=== PATIENT | female | born 1985 | race Asian ===

== ENCOUNTER 2016-04-04 19:23 | Emergency (ER) | payer OTHER ==
[~2016-04-04] VITALS: Ht 170.2 cm; Wt 56.7 kg
[~2016-04-04 19:23] MED LIST: AMBIEN5 MG PO; CAMILA0.35 MG PO; DIPH25CA90 PO; FENTANYL TOP; FOLI1TAB26 PO; FOLIC ACID5 MG PO; HYDR10TA47 PO; HYDR2TAB12 PO; HYDR4TAB12 PO; HYDROXYUREA500 MG PO; IBUP-97 PO; KETO10TA34 PO; LEXAPRO10 MG PO; LORTAB 10-325 M1 TAB PO; LORTAB 7.5-3251 TAB PO; LORTAB1 TAB PO; MOTRIN IB200 MG PO; OXYC5TAB24 PO; PROM25TA52 PO; TEMA15CA19 PO; TIZA4TAB5 PO; ZOLOFT25 MG PO
[2016-04-04 22:16] LABS: POTASSIUM 3.7 mmol/L (3.6-5.2); SODIUM 141 mmol/L (136-145)
[2016-04-04 22:18] LABS: PLATELET COUNT 374 K/uL (152-353)
[2016-04-04 23:30] VITALS: BP 102/62; TEMP 99.8
== END 2016-04-04 23:36 | disposition home or self-care (01) ==
LOC: ED 19:23
PROVIDERS: Specialist
DX: T80.69XA Other serum reaction due to other serum, initial encounter (principal); D57.80 Other sickle-cell disorders without crisis
CPT/HCPCS: 36415; 80048; 85027; 85044; 96374; 99284; J1642; J1885

== ENCOUNTER 2019-10-27 10:57 | Inpatient (IN) | payer OTHER ==
[~2019-10-27] VITALS: Ht 170.2 cm; Wt 54.0 kg
[2019-10-27 11:05] VITALS: BP 107/64; TEMP 99.1
[2019-10-27 12:14] LABS: POTASSIUM 3.5 mmol/L (3.6-5.2)
[2019-10-27 12:17] LABS: PLATELET COUNT 339 K/uL (152-353)
[2019-10-27 15:35] VITALS: BP 106/60; TEMP 98.3; Ht 170.2 cm; Wt 54.0 kg
[2019-10-27] MEDS ORDERED: KP FOLIC ACID1 MG PO (19:03)
[2019-10-27] MEDS ORDERED: ELIQUIS5 MG PO (19:04)
[2019-10-27] MEDS ORDERED: PROMETHAZINE12.5 M3 PO (19:06)
[2019-10-27] MEDS ORDERED: METOPROLOL25 M1 PO (19:08)
[2019-10-27] MEDS ORDERED: HYDROXYUREA500 MG PO (19:10)
[2019-10-27 20:00] VITALS: BP 103/52; TEMP 98.1
[2019-10-28] VITALS (21 sets, daily range): BP systolic 84–116; BP diastolic 46–72; TEMP 97.9–98.8
[2019-10-29] VITALS: BP 108/59; TEMP 100.8
[2019-10-29 01:21] LABS: PLATELET COUNT 312 K/uL (152-353)
[2019-10-29 01:48] LABS: POTASSIUM 3.9 mmol/L (3.6-5.2)
[2019-10-29 04:04] VITALS: BP 108/60; TEMP 100
[2019-10-29 06:20] LABS: PLATELET COUNT 282 K/uL (152-353)
[2019-10-29 06:42] LABS: POTASSIUM 3.9 mmol/L (3.6-5.2)
[2019-10-29 08:00] VITALS: BP 103/61; TEMP 98.6
[2019-10-29 12:00] VITALS: BP 108/69; TEMP 98.7
[2019-10-29 16:00] VITALS: BP 109/67; TEMP 98.6
[2019-10-29 20:00] VITALS: BP 98/50; TEMP 99.7
[2019-10-30] VITALS: BP 117/73; TEMP 98.9
[2019-10-30 04:00] VITALS: BP 107/64; TEMP 98.9
[2019-10-30 05:36] LABS: PLATELET COUNT 281 K/uL (152-353)
[2019-10-30 05:40] LABS: POTASSIUM 3.9 mmol/L (3.6-5.2)
[2019-10-30 08:00] VITALS: BP 105/69; TEMP 98.6
[2019-10-30 12:00] VITALS: BP 112/57; TEMP 99.2
[2019-10-30 16:00] VITALS: BP 112/70; TEMP 98.6
[2019-10-30 20:00] VITALS: BP 110/69; TEMP 99
[2019-10-31] VITALS: BP 110/51; TEMP 98.6
[2019-10-31 04:05] VITALS: BP 105/68; TEMP 98.9
[2019-10-31 04:34] LABS: PLATELET COUNT 249 K/uL (152-353)
[2019-10-31 04:39] LABS: POTASSIUM 3.9 mmol/L (3.6-5.2)
[2019-10-31 08:00] VITALS: BP 119/71; TEMP 99.2
[2019-10-31 12:00] VITALS: BP 102/61; TEMP 98.7
[2019-10-31 16:00] VITALS: BP 111/65; TEMP 98.3
[2019-10-31 20:15] VITALS: BP 115/66; TEMP 98.5
[2019-11-01] VITALS (7 sets, daily range): BP systolic 92–114; BP diastolic 48–75; TEMP 97.7–99.5
[2019-11-01 05:52] LABS: PLATELET COUNT 297 K/uL (152-353)
[2019-11-01 06:09] LABS: POTASSIUM 3.9 mmol/L (3.6-5.2)
[2019-11-02 04:00] VITALS: BP 97/57; TEMP 98.1
[2019-11-02 06:29] LABS: POTASSIUM 3.6 mmol/L (3.6-5.2)
[2019-11-02 06:43] LABS: PLATELET COUNT 289 K/uL (152-353)
[2019-11-02 08:00] VITALS: BP 102/55; TEMP 98.4
[2019-11-02 12:00] VITALS: BP 100/61; TEMP 98.7
[2019-11-02 16:00] VITALS: BP 102/54; TEMP 98.3
[2019-11-02 20:00] VITALS: BP 98/54; TEMP 98.2
[2019-11-03] VITALS: BP 119/75; TEMP 98.3
[2019-11-03 04:24] VITALS: BP 102/53; TEMP 98.5
[2019-11-03 05:57] LABS: PLATELET COUNT 366 K/uL (152-353)
[2019-11-03 06:30] LABS: POTASSIUM 3.6 mmol/L (3.6-5.2)
[2019-11-03 08:00] VITALS: BP 99/56; TEMP 98.1
[2019-11-03 12:00] VITALS: BP 111/56; TEMP 98
[2019-11-03 16:00] VITALS: BP 104/62; TEMP 98.4
[2019-11-03 20:00] VITALS: BP 125/70; TEMP 101.1
[2019-11-04] VITALS (8 sets, daily range): BP systolic 94–119; BP diastolic 47–70; TEMP 99.2–103.1
[2019-11-04 02:47] LABS: PLATELET COUNT 348 K/uL (152-353)
[2019-11-05 00:03] VITALS: BP 107/61; TEMP 98.7
[2019-11-05 03:03] LABS: PLATELET COUNT 328 K/uL (152-353)
[2019-11-05 04:06] LABS: POTASSIUM 3.7 mmol/L (3.6-5.2)
[2019-11-05 04:52] VITALS: BP 108/70; TEMP 98.9
[2019-11-05 08:00] VITALS: BP 110/66; TEMP 99.1
[2019-11-05 12:00] VITALS: BP 100/61; TEMP 98.6
[2019-11-05 16:00] VITALS: BP 129/76; TEMP 98.4
[2019-11-05 20:00] VITALS: BP 102/68; TEMP 98.2
[2019-11-06] VITALS: BP 124/78; TEMP 98.3
[2019-11-06 04:00] VITALS: BP 151/97; TEMP 98.5
[2019-11-06 07:30] LABS: PLATELET COUNT 297 K/uL (152-353)
[2019-11-06 08:00] VITALS: BP 120/68; TEMP 98.7
[2019-11-06 12:00] VITALS: BP 120/69; TEMP 98.3
[2019-11-06] MEDS ORDERED: CLIN300C PO (13:18)
[2019-11-06] MEDS ORDERED: [UNRECOGNIZED DRUG - OTHER] PO (13:21)
[2019-11-06 16:00] VITALS: BP 122/73; TEMP 98.5
== END 2019-11-06 17:20 | disposition home or self-care (01) | DRG 811 ==
LOC: ED 10:57 → MED/SURG 13:35
PROVIDERS: Internal Medicine; Internal Medicine Endocrinology, Diabetes & Metabolism; ADMIT Emergency Medicine Emergency Medical Services
PROC: 30233N1 Transfusion of Nonautologous Red Blood Cells into Peripheral Vein, Percutaneous Approach (ICD-10-PCS; principal; 2019-10-28)
DX: D57.819 Other sickle-cell disorders with crisis, unspecified (principal); A41.01 Sepsis due to Methicillin susceptible Staphylococcus aureus; Q89.01 Asplenia (congenital); I42.8 Other cardiomyopathies; I48.92 Unspecified atrial flutter; R07.89 Other chest pain; G89.4 Chronic pain syndrome; R79.89 Other specified abnormal findings of blood chemistry; R59.1 Generalized enlarged lymph nodes; R91.8 Other nonspecific abnormal finding of lung field; Z79.1 Long term (current) use of non-steroidal anti-inflammatories (NSAID); Z79.891 Long term (current) use of opiate analgesic; R16.0 Hepatomegaly, not elsewhere classified; Z79.01 Long term (current) use of anticoagulants
CPT/HCPCS: 36415; 36416; 36591; 80048; 80053; 80074; 80202; 81000; 82550; 82553; 84484; 85007; 85027; 85044; 86850; 86870; 86900; 86901; 86902; 86905; 86922; 87040; 87077; 87185; 87186; 87205; 87635; 93005; 94760; 96360; 96375; 99284; J1170; J1200; J1642; J1650; J1885; J1940; J2543; J3370; P9016; Q9963; U0003

== ENCOUNTER 2019-12-04 10:00 | Inpatient (IN) | payer OTHER ==
[~2019-12-04] VITALS: Ht 170.2 cm; Wt 59.1 kg
[~2019-12-04 10:00] MED LIST changes: +CLIN300C PO; +ELIQUIS5 MG PO; +KP FOLIC ACID1 MG PO; +METOPROLOL25 M1 PO; +PROMETHAZINE12.5 M3 PO; +[UNRECOGNIZED DRUG - OTHER] PO
[2019-12-04 10:13] VITALS: BP 104/45; TEMP 98.7
[2019-12-04 10:52] LABS: PLATELET COUNT 287 K/uL (152-353)
[2019-12-04 11:02] LABS: PARTIAL THROMBOPLASTIN TIME 72.3 SECONDS (24.5-33.6)
[2019-12-04 13:21] VITALS: BP 115/70; TEMP 98.5; Ht 170.2 cm; Wt 59.1 kg
[2019-12-04 20:00] VITALS: BP 136/60; TEMP 98
[2019-12-04 23:57] VITALS: BP 124/70; TEMP 98.9
[2019-12-05] VITALS (9 sets, daily range): BP systolic 107–120; BP diastolic 52–69; TEMP 98.4–100.7
[2019-12-05 05:30] LABS: POTASSIUM 4.3 mmol/L (3.6-5.2)
[2019-12-05 05:45] LABS: PLATELET COUNT 230 K/uL (152-353)
[2019-12-06] VITALS (10 sets, daily range): BP systolic 104–122; BP diastolic 56–73; TEMP 99.1–100.3
[2019-12-06] MEDS ORDERED: AMOX500T5 PO (16:26)
[2019-12-06] MEDS ORDERED: CIPRO500 MG PO (16:36)
== END 2019-12-06 18:00 | disposition home or self-care (01) | DRG 812 ==
LOC: ED 10:00 → MED/SURG 11:25
PROVIDERS: Internal Medicine; ADMIT Hospitalist
PROC: 30233N1 Transfusion of Nonautologous Red Blood Cells into Peripheral Vein, Percutaneous Approach (ICD-10-PCS; principal; 2019-12-05)
PROC: 30233N1 Transfusion of Nonautologous Red Blood Cells into Peripheral Vein, Percutaneous Approach (ICD-10-PCS; 2019-12-06)
DX: D57.819 Other sickle-cell disorders with crisis, unspecified (principal); N39.0 Urinary tract infection, site not specified; I48.0 Paroxysmal atrial fibrillation; Z79.01 Long term (current) use of anticoagulants; B96.1 Klebsiella pneumoniae [K. pneumoniae] as the cause of diseases classified elsewhere
CPT/HCPCS: 36415; 36430; 80053; 81000; 81025; 83605; 85007; 85014; 85018; 85027; 85044; 85610; 85730; 86850; 86900; 86901; 86922; 87040; 87077; 87086; 87088; 87186; 94760; 96361; 96365; 96366; 96372; 96374; 96375; 99284; J1170; J1200; J1642; J1650; J1885; J1956; J2405; P9016

== ENCOUNTER 2019-12-29 23:53 | Inpatient (IN) | payer OTHER ==
[~2019-12-29] VITALS: Ht 170.2 cm; Wt 58.1 kg
[~2019-12-29 23:53] MED LIST changes: +AMOX500T5 PO; +CIPRO500 MG PO
[2019-12-29 23:58] VITALS: BP 117/48; TEMP 99.2
[2019-12-30] VITALS (14 sets, daily range): BP systolic 89–120; BP diastolic 48–81; TEMP 97.2–98.7; Ht 170.2 cm; Wt 58.1 kg
[2019-12-30 01:09] LABS: POTASSIUM 3.4 mmol/L (3.6-5.2)
[2019-12-30 01:13] LABS: PLATELET COUNT 359 K/uL (152-353)
[2019-12-31] VITALS (11 sets, daily range): BP systolic 101–128; BP diastolic 63–84; TEMP 97.4–99.1
[2019-12-31 12:55] LABS: PLATELET COUNT 311 K/uL (152-353)
[2019-12-31] MEDS ORDERED: EXJADE500 MG PO (17:50)
[2020-01-01 04:00] VITALS: BP 128/83; TEMP 99
[2020-01-01 08:00] VITALS: BP 112/73; TEMP 99.4
[2020-01-01 12:00] VITALS: BP 117/72; TEMP 99.7
[2020-01-01 16:00] VITALS: BP 118/68; TEMP 99.7
[2020-01-01 20:00] VITALS: BP 135/70; TEMP 99.6
[2020-01-02] VITALS: BP 137/71; TEMP 100
[2020-01-02 04:00] VITALS: BP 129/78; TEMP 99.3
[2020-01-02 08:00] VITALS: BP 118/69; TEMP 99.3
[2020-01-02 12:00] VITALS: BP 136/86; TEMP 99.4
[2020-01-02 13:23] LABS: PLATELET COUNT 269 K/uL (152-353)
[2020-01-02 13:40] LABS: POTASSIUM 3.9 mmol/L (3.6-5.2)
[2020-01-02 16:00] VITALS: BP 138/88; TEMP 99.6
[2020-01-02 20:00] VITALS: BP 122/68; BP 160/67; TEMP 98.4; TEMP 99.8
[2020-01-03] VITALS: BP 128/68; TEMP 100.2
[2020-01-03 04:00] VITALS: BP 125/68; TEMP 100.5
[2020-01-03 08:00] VITALS: BP 114/61; TEMP 98.9
[2020-01-03 12:00] VITALS: BP 118/67; TEMP 98.9
[2020-01-03] MEDS ORDERED: BLOOMIS59 PO (13:59)
== END 2020-01-03 15:30 | disposition home or self-care (01) | DRG 812 ==
LOC: ED 23:53 → MED/SURG 12-30 01:52
PROVIDERS: Emergency Medicine Emergency Medical Services; ADMIT Internal Medicine
PROC: 30233N1 Transfusion of Nonautologous Red Blood Cells into Peripheral Vein, Percutaneous Approach (ICD-10-PCS; principal; 2019-12-30)
PROC: 30233N1 Transfusion of Nonautologous Red Blood Cells into Peripheral Vein, Percutaneous Approach (ICD-10-PCS; 2019-12-31)
DX: D57.818 Other sickle-cell disorders with crisis with other specified complication (principal); I48.92 Unspecified atrial flutter; Z79.01 Long term (current) use of anticoagulants; D72.828 Other elevated white blood cell count
CPT/HCPCS: 36415; 36591; 80053; 81000; 85027; 85044; 86850; 86900; 86901; 86922; 93005; 96360; 96365; 96375; 99284; J1170; J1200; J1642; J2543; P9016

== ENCOUNTER 2020-01-18 13:27 | Emergency (ER) | payer OTHER ==
[~2020-01-18] VITALS: Ht 170.2 cm; Wt 49.9 kg
[~2020-01-18 13:27] MED LIST changes: +BLOOMIS59 PO; +EXJADE500 MG PO
[2020-01-18 13:49] VITALS: TEMP 98.8
[2020-01-18 14:56] VITALS: BP 113/71
== END 2020-01-18 14:56 | disposition home or self-care (01) ==
LOC: ED 13:27
DX: D57.1 Sickle-cell disease without crisis (principal); M25.552 Pain in left hip
CPT/HCPCS: 96372; 99283; J1200; J2175

== ENCOUNTER 2020-01-31 16:54 | Emergency (ER) | payer OTHER ==
[~2020-01-31] VITALS: Ht 170.2 cm; Wt 49.9 kg
[2020-01-31 19:05] VITALS: BP 117/63; TEMP 97.3
== END 2020-01-31 19:05 | disposition home or self-care (01) ==
LOC: ED 16:54
DX: N39.0 Urinary tract infection, site not specified (principal); Z03.818 Encounter for observation for suspected exposure to other biological agents ruled out
CPT/HCPCS: 81000; 87086; 87088; 87502; 87635; 96372; 99282; 99283; J1885; U0003

== ENCOUNTER 2020-02-09 15:52 | Outpatient (CLI) | payer OTHER ==
[2020-02-09 16:06] LABS: PLATELET COUNT 288 K/uL (152-353)
== END 2020-02-09 19:10 | disposition home or self-care (01) ==
LOC: LABW 15:52
PROVIDERS: ATTEND Nurse Practitioner
DX: D57.1 Sickle-cell disease without crisis (principal)
CPT/HCPCS: 36415; 82728; 85027; 85044

== ENCOUNTER 2020-02-11 04:32 | Inpatient (IN) | payer OTHER ==
[~2020-02-11] VITALS: Ht 170.2 cm; Wt 62.6 kg
[2020-02-11] VITALS (11 sets, daily range): BP systolic 90–130; BP diastolic 53–91; TEMP 97.6–99.5; Ht 170.2 cm; Wt 62.6 kg
[2020-02-11 06:11] LABS: PLATELET COUNT 251 K/uL (152-353)
[2020-02-11] MEDS ORDERED: NORCO 10/325***1 TAB PO (16:38)
[2020-02-11 18:50] LABS: PLATELET COUNT 208 K/uL (152-353)
[2020-02-12 04:00] VITALS: BP 118/57; TEMP 98.6
[2020-02-12 05:22] LABS: POTASSIUM 4.6 mmol/L (3.6-5.2)
[2020-02-12 06:14] LABS: PLATELET COUNT 156 K/uL (152-353)
[2020-02-12 08:00] VITALS: BP 110/58; TEMP 98.5
[2020-02-12 12:00] VITALS: BP 120/65; TEMP 98.5
[2020-02-12 16:00] VITALS: BP 106/52; TEMP 98.8
[2020-02-12 19:58] VITALS: BP 105/52; TEMP 99.3
[2020-02-12 23:41] VITALS: BP 148/69; TEMP 101.7
[2020-02-13] VITALS (11 sets, daily range): BP systolic 82–139; BP diastolic 44–69; TEMP 99.3–101.6
[2020-02-13 05:45] LABS: PLATELET COUNT 117 K/uL (152-353)
[2020-02-13 05:56] LABS: POTASSIUM 4.8 mmol/L (3.6-5.2)
[2020-02-14] VITALS: BP 84/50; TEMP 99.8
[2020-02-14 04:00] VITALS: BP 88/47; TEMP 99.4
[2020-02-14 05:37] LABS: PLATELET COUNT 229 K/uL (152-353)
[2020-02-14 05:42] LABS: POTASSIUM 4.3 mmol/L (3.6-5.2)
[2020-02-14 08:00] VITALS: BP 90/41; TEMP 100.1
[2020-02-14 12:00] VITALS: BP 99/46; TEMP 99.6
[2020-02-14 16:00] VITALS: BP 102/49; TEMP 100.1
[2020-02-14 20:00] VITALS: BP 124/72; TEMP 102.2
[2020-02-15] VITALS (12 sets, daily range): BP systolic 91–115; BP diastolic 43–73; TEMP 98.4–100.1
[2020-02-15 08:05] LABS: PLATELET COUNT 252 K/uL (152-353)
[2020-02-15 08:29] LABS: POTASSIUM 3.7 mmol/L (3.6-5.2)
== END 2020-02-15 15:55 | disposition short-term general hospital (02) | DRG 812 ==
LOC: ED 04:32 → MED/SURG 07:30
PROVIDERS: ADMIT Emergency Medicine Emergency Medical Services; ATTEND Internal Medicine
PROC: 30233N1 Transfusion of Nonautologous Red Blood Cells into Peripheral Vein, Percutaneous Approach (ICD-10-PCS; principal; 2020-02-11)
PROC: 30233N1 Transfusion of Nonautologous Red Blood Cells into Peripheral Vein, Percutaneous Approach (ICD-10-PCS; 2020-02-13)
DX: D57.818 Other sickle-cell disorders with crisis with other specified complication (principal); R50.81 Fever presenting with conditions classified elsewhere
CPT/HCPCS: 36415; 80053; 80202; 81000; 81025; 83735; 85007; 85014; 85018; 85027; 85044; 86850; 86900; 86901; 86922; 87040; 87077; 87086; 87088; 87186; 96360; 96361; 96366; 96367; 96374; 96375; 96376; 99284; J1170; J1200; J2405; J2543; J3010; J3370; P9016; Q9963

== ENCOUNTER 2020-03-10 14:10 | Emergency (ER) | payer OTHER ==
[~2020-03-10] VITALS: Ht 170.2 cm; Wt 48.5 kg
[~2020-03-10 14:10] MED LIST changes: +NORCO 10/325***1 TAB PO
[2020-03-10 14:15] VITALS: TEMP 97.8
[2020-03-10 14:55] LABS: SODIUM 140 mmol/L (136-145)
[2020-03-10 14:56] LABS: PLATELET COUNT 378 K/uL (152-353)
[2020-03-10 15:02] LABS: PARTIAL THROMBOPLASTIN TIME 28.5 SECONDS (24.5-33.6)
[2020-03-10 18:42] VITALS: BP 105/60
[2020-06-25] MEDS ORDERED: PROM25TA52 PO (12:53)
[2020-06-25] MEDS ORDERED: GABA300C2 PO (12:53)
[2020-06-25] MEDS ORDERED: DOXYCYCL HYC100 MG PO (12:55)
[2020-06-25] MEDS ORDERED: ALLERGY25 M2 PO (12:56)
[2020-06-25] MEDS ORDERED: AMOX875T8 PO (12:57)
[2020-06-25] MEDS ORDERED: PERCOCET1 TA3 PO (12:58)
== END 2020-03-10 18:44 | disposition home or self-care (01) ==
LOC: ED 14:10
PROVIDERS: Hospitalist
DX: R07.89 Other chest pain (principal); D57.1 Sickle-cell disease without crisis; D63.8 Anemia in other chronic diseases classified elsewhere
CPT/HCPCS: 80053; 81000; 81025; 82550; 83605; 83880; 84484; 85027; 85379; 85610; 85730; 87040; 93005; 96360; 96361; 96365; 96375; 99284; J1642; J1885; J2175; J2543; Q9963

== ENCOUNTER 2020-03-16 02:56 | Emergency (ER) | payer OTHER ==
[~2020-03-16] VITALS: Ht 170.2 cm; Wt 8.2 kg
[2020-03-16 04:23] LABS: PLATELET COUNT 285 K/uL (152-353)
[2020-03-16 04:34] LABS: POTASSIUM 4.3 mmol/L (3.6-5.2)
[2020-03-16 06:10] VITALS: BP 110/72; TEMP 98.3
[2020-06-25] MEDS ORDERED: GABA300C2 PO (12:53)
[2020-06-25] MEDS ORDERED: PROM25TA52 PO (12:53)
[2020-06-25] MEDS ORDERED: DOXYCYCL HYC100 MG PO (12:55)
[2020-06-25] MEDS ORDERED: ALLERGY25 M2 PO (12:56)
[2020-06-25] MEDS ORDERED: AMOX875T8 PO (12:57)
[2020-06-25] MEDS ORDERED: PERCOCET1 TA3 PO (12:58)
== END 2020-03-16 06:10 | disposition home or self-care (01) ==
LOC: ED 02:56
PROVIDERS: Emergency Medicine Emergency Medical Services
DX: D57.1 Sickle-cell disease without crisis (principal); M54.89 Other dorsalgia
CPT/HCPCS: 36415; 80053; 81000; 81025; 83735; 85027; 85044; 87086; 87088; 96360; 96375; 99284; J1170; J1642; J2175; J2405; J2550

== ENCOUNTER 2020-03-16 14:09 | Emergency (ER) | payer OTHER ==
[~2020-03-16] VITALS: Ht 170.2 cm; Wt 53.5 kg
[2020-03-16 14:17] VITALS: TEMP 99.3
[2020-03-16 18:04] VITALS: BP 118/66
[2020-06-25] MEDS ORDERED: PROM25TA52 PO (12:53)
[2020-06-25] MEDS ORDERED: GABA300C2 PO (12:53)
[2020-06-25] MEDS ORDERED: DOXYCYCL HYC100 MG PO (12:55)
[2020-06-25] MEDS ORDERED: ALLERGY25 M2 PO (12:56)
[2020-06-25] MEDS ORDERED: AMOX875T8 PO (12:57)
[2020-06-25] MEDS ORDERED: PERCOCET1 TA3 PO (12:58)
== END 2020-03-16 18:06 | disposition home or self-care (01) ==
LOC: ED 14:09
DX: D57.00 Hb-SS disease with crisis, unspecified (principal); E86.0 Dehydration
CPT/HCPCS: 96360; 96375; 99284; J1642; J2175; J2550

== ENCOUNTER 2020-03-20 01:42 | Inpatient (IN) | payer OTHER ==
[~2020-03-20] VITALS: Ht 170.2 cm; Wt 56.0 kg
[2020-03-20] VITALS (32 sets, daily range): BP systolic 75–111; BP diastolic 39–68; TEMP 97–103.4; Ht 170.2 cm; Wt 56.0 kg
[2020-03-20 02:19] LABS: PLATELET COUNT 313 K/uL (152-353)
[2020-03-20 02:24] LABS: POTASSIUM 4.2 mmol/L (3.6-5.2)
--- NOTE | 2020-03-20 16:10 | NUR ---
VS OBTAINED AND RECORDED.
--- NOTE | 2020-03-20 16:15 | NUR ---
UNIT ONE PRBC VERIFIED BY CASHIER AND WAITER/WAITRESS AND Brigida MYRICK RN. BLOOD SPIKED BY Brigida MYRICK RN. STANDBY OBSERVATION AND VS CHECK PER CASHIER AND WAITER/WAITRESS.
--- NOTE | 2020-03-20 16:30 | NUR ---
15MIN OBSERVATION PERIOD COMPLETED WITH NO S/SX TRANSFUSION REACTION NOTED. CALL LIGHT IN EASY REACH. WILL CONTINUE TO MONITOR.
--- NOTE | 2020-03-20 18:18 | NUR ---
UNIT 1 TRANSFUSION COMPLETET- NO S/SX TRANSFUSION REACTION NOTED.
--- NOTE | 2020-03-20 18:20 | NUR ---
PRBC UNIT #2 VERIFIED BY LEAD MINER AND Brigida MYRICK RN. LUNGS CTA. BLOOD SPIKED BY Brigida MYRICK RN AND STARTED TRANSFUSING.
--- NOTE | 2020-03-20 18:35 | NUR ---
15MIN OBSERVATION TIME COMPLETE WITH NO S/SX TRANSFUSION REACTION NOTED. BLOOD RATE SET TO 200ML/HR AND INFUSING TO PAC IN LCW W/O DIFFICULTY.
--- NOTE | 2020-03-20 22:17 | NUR ---
03/20/200: PT AWAKE, EATING TAIWANESE FRIES AND PLAYING A GAME ON PHONE. NO DISTRESS NOTED.
--- NOTE | 2020-03-21 01:24 | NUR ---
03/21/20 0110: PT HAS REQUESTED TO HAVE BLOOD PRESSURE CHECKED AT 2330, AND 0100. BLOOD PRESSURE AT 0100 135/83. DEMEROL 25 MG GIVEN IV AND PHENERGAN 12.5 MG GIVEN PIGGYBACK.
[2020-03-21 03:54] VITALS: BP 104/58; TEMP 98.8
--- NOTE | 2020-03-21 05:35 | NUR ---
Patient is on a Regular diet plan and was admitted with scikle cell crisis, pneumonia and is 5'7" or 67" and IBW = 135+/-10% (121 to 149 lbs.) and kcal needs x 25 = 1500, x 30 = 1800, x 35 = 2100, x 40 = 2100 kcal/day, protein nees x .8 to 1.5 = 49 to 92 grams per day and fluid needs x 25 to 40 = 1500 ml/cc to 2100 ml/cc per day and is at 116.8 lbs. and is 87% of IBW and BMI at 18.32 and is a 34YOF, has bone pain, hemolytic anemia, anemia, CP, Nausea, VALENCIA, UTI, Anemia, atrial flutter, reviewed whole chart, medications, labs and see cahrt for more information and detials and Hgb, Hct, RBC, all depressed and thos labs elevated are WBC, gl 141, AST< ALT and total bilirubin and see labs for more information and details, has a chronic pain d/o, 103 degrees F fever, receives 2 units of PRBC's and hypotension improved with IV fluids. RD Recommendaitons: 1-Monitor Labs 2-OT to work wiht patient 3-PT to work with patient 4-Please work with for pain management 5-Increase fluids as tolerated 6-Add MVI 7-Add appetite stimulant 8-Add a supplement with meals 9-Monitor B/S and glucose levels, no Dx. of DM noted 10-Increase foods high in Fe 11-Add a supplement when eating <75% of meals
--- NOTE | 2020-03-21 05:39 | NUR ---
03/21/20 0507: PT WOKE UP AND ASKED IF IT WAS TIME FOR HER PAIN MEDICINE. CHECKED PT'S BLOOD PRESSURE 104/58. INFORMED PT THAT BLOOD PRESSURE WAS TOO LOW FOR DEMEROL BUT THAT SHE COULD HAVE A PAIN PILL. PT AGREED
[2020-03-21 06:16] LABS: PLATELET COUNT 286 K/uL (152-353)
[2020-03-21 06:42] LABS: POTASSIUM 4.2 mmol/L (3.6-5.2)
[2020-03-21 08:00] VITALS: BP 124/73; TEMP 99
[2020-03-21 12:00] VITALS: BP 117/72; TEMP 98.4
[2020-03-21 16:00] VITALS: BP 116/74; TEMP 98.3
--- NOTE | 2020-03-21 16:00 | NUR ---
PT REQUESTING PAIN MEDICATION DUE TO PAIN AT A 8 ON A 0-10 PAIN SCALE IN HER BACK, RT HIP, AND BILAT LOWER EXT., NO FURTHER NEEDS AT THIS TIME, WILL REASSESS PAIN, CALL LIGHT WITHIN REACH
[2020-03-21 20:28] VITALS: BP 122/73; TEMP 98.7
--- NOTE | 2020-03-21 20:41 | NUR ---
03/21/202007: PT REQUESTED PAIN MED FOR LEVEL 6 PAIN. BLOOD PRESSURE 122/73. DEMEROL 25 MG AND PHENERGAN 12.5MG GIVEN IV.
[2020-03-22 00:07] VITALS: BP 123/83; TEMP 99
--- NOTE | 2020-03-22 00:23 | NUR ---
03/22/20 0010: PT REQUESTED PAIN MEDICINE FOR LEVEL 6 PAIN GENERALIZED IN STOMACH, LEGS, AND BACK. BLOOD PRESSURE 123/83. DEMEROL 25MG AND PHENERGAN 12.5 MG GIVEN IV.
[2020-03-22 04:00] VITALS: BP 122/80; TEMP 99.3
[2020-03-22 05:57] LABS: PLATELET COUNT 267 K/uL (152-353)
[2020-03-22 06:49] LABS: POTASSIUM 3.9 mmol/L (3.6-5.2)
[2020-03-22 08:00] VITALS: BP 141/82; TEMP 99.2
[2020-03-22 12:00] VITALS: BP 125/78; TEMP 99.6
[2020-03-22 16:00] VITALS: BP 145/94; TEMP 98.8
[2020-03-22 19:40] VITALS: BP 104/62; TEMP 99.3
[2020-03-23] VITALS: BP 112/69; TEMP 98.5
[2020-03-23 04:00] VITALS: BP 113/64; TEMP 98.8
[2020-03-23 05:50] LABS: PLATELET COUNT 235 K/uL (152-353)
[2020-03-23 06:19] LABS: POTASSIUM 4.2 mmol/L (3.6-5.2)
[2020-03-23 08:00] VITALS: BP 112/71; TEMP 99.1
[2020-03-23 12:00] VITALS: BP 122/78; TEMP 98.9
[2020-03-23 16:00] VITALS: BP 114/71; TEMP 98.6
[2020-03-23 20:01] VITALS: BP 117/67; TEMP 99.1
[2020-03-24] VITALS: BP 117/67; TEMP 99.1
[2020-03-24 04:00] VITALS: BP 117/80; TEMP 99.5
[2020-03-24 05:43] LABS: PLATELET COUNT 233 K/uL (152-353)
[2020-03-24 06:06] LABS: POTASSIUM 4.1 mmol/L (3.6-5.2)
[2020-03-24 07:30] VITALS: BP 114/77; TEMP 98.9
[2020-03-24 12:00] VITALS: BP 123/78; TEMP 99.3
--- NOTE | 2020-03-24 14:27 | NUR ---
D/C INSTRUCTIONS GIVEN TO PT. PT VERBALIZED UNDERSTANDING. FOLLOW UP APPOINTMENT WITH OLIVIA LY FOR APRIL 01, 2020 AT 2PM. PAC TO [place] D/C INTACT.
--- NOTE | 2020-04-01 09:44 | NUR ---
received call back from Kala @ [facility] ph [phone] ext [phone], fx [phone], they will review records and schedule a new pt appt and notify us nettie.
[2020-06-25] MEDS ORDERED: PROM25TA52 PO (12:53)
[2020-06-25] MEDS ORDERED: GABA300C2 PO (12:53)
[2020-06-25] MEDS ORDERED: DOXYCYCL HYC100 MG PO (12:55)
[2020-06-25] MEDS ORDERED: ALLERGY25 M2 PO (12:56)
[2020-06-25] MEDS ORDERED: AMOX875T8 PO (12:57)
[2020-06-25] MEDS ORDERED: PERCOCET1 TA3 PO (12:58)
== END 2020-03-24 15:05 | disposition home or self-care (01) | DRG 811 ==
LOC: ED 01:57 → MED/SURG 06:20 → ED 06:20 → MED/SURG 07:23
PROVIDERS: Family Medicine; ADMIT Internal Medicine Endocrinology, Diabetes & Metabolism; ATTEND Internal Medicine Endocrinology, Diabetes & Metabolism
PROC: 30233N1 Transfusion of Nonautologous Red Blood Cells into Peripheral Vein, Percutaneous Approach (ICD-10-PCS; principal; 2020-03-20)
DX: D57.818 Other sickle-cell disorders with crisis with other specified complication (principal); J18.8 Other pneumonia, unspecified organism; G89.4 Chronic pain syndrome; I95.89 Other hypotension; R19.7 Diarrhea, unspecified
CPT/HCPCS: 36415; 80053; 81000; 85007; 85027; 85044; 86850; 86900; 86901; 86922; 87040; 87086; 87088; 87502; 87635; 94640; 94664; 94760; 96361; 96365; 96375; 96376; 99284; J0456; J1170; J1200; J1642; J2175; J2550; J3490; P9016; U0003

== ENCOUNTER 2020-04-14 18:41 | Inpatient (IN) | payer OTHER ==
[~2020-04-14] VITALS: Ht 170.2 cm; Wt 51.0 kg
[2020-04-14] VITALS (10 sets, daily range): BP systolic 86–103; BP diastolic 45–69; TEMP 99.3
[2020-04-14] MEDS ORDERED: [UNRECOGNIZED DRUG - OTHER] PO (19:40)
[2020-04-14 21:03] LABS: PLATELET COUNT 398 K/uL (152-353)
[2020-04-14 21:10] LABS: POTASSIUM 4.3 mmol/L (3.6-5.2); SODIUM 141 mmol/L (136-145)
[2020-04-15] VITALS (16 sets, daily range): BP systolic 103–179; BP diastolic 48–88; TEMP 97.7–98.7; Ht 170.2 cm; Wt 51.0 kg
[2020-04-15] MEDS ORDERED: IBU800 MG PO (00:31)
[2020-04-15 13:20] LABS: POTASSIUM 4.2 mmol/L (3.6-5.2)
[2020-04-15 13:27] LABS: PLATELET COUNT 342 K/uL (152-353)
[2020-04-16] VITALS: BP 131/79; TEMP 98.6
[2020-04-16 04:00] VITALS: BP 124/76; TEMP 98.3
[2020-04-16 08:00] VITALS: BP 99/61; TEMP 98
[2020-06-25] MEDS ORDERED: PROM25TA52 PO (12:53)
[2020-06-25] MEDS ORDERED: GABA300C2 PO (12:53)
[2020-06-25] MEDS ORDERED: DOXYCYCL HYC100 MG PO (12:55)
[2020-06-25] MEDS ORDERED: ALLERGY25 M2 PO (12:56)
[2020-06-25] MEDS ORDERED: AMOX875T8 PO (12:57)
[2020-06-25] MEDS ORDERED: PERCOCET1 TA3 PO (12:58)
== END 2020-04-16 11:15 | disposition home or self-care (01) | DRG 812 ==
LOC: ED 18:41 → MED/SURG 23:16
PROVIDERS: Emergency Medicine; ADMIT Internal Medicine Endocrinology, Diabetes & Metabolism; ATTEND Internal Medicine Endocrinology, Diabetes & Metabolism
PROC: 30233N1 Transfusion of Nonautologous Red Blood Cells into Peripheral Vein, Percutaneous Approach (ICD-10-PCS; principal; 2020-04-15)
DX: D57.818 Other sickle-cell disorders with crisis with other specified complication (principal); N39.0 Urinary tract infection, site not specified; I48.92 Unspecified atrial flutter; R51.9 Headache, unspecified
CPT/HCPCS: 36415; 80048; 80053; 80307; 81000; 84484; 85008; 85027; 85610; 85730; 86850; 86900; 86901; 86922; 87086; 87088; 87635; 93005; 96360; 96375; 99284; J1200; J1885; J2175; J2405; P9016; U0003

== ENCOUNTER 2020-04-30 21:06 | Emergency (ER) | payer OTHER ==
[~2020-04-30] VITALS: Ht 170.2 cm; Wt 47.6 kg
[~2020-04-30 21:06] MED LIST changes: +IBU800 MG PO; +[UNRECOGNIZED DRUG - OTHER] PO
[2020-04-30 22:35] VITALS: BP 102/62; TEMP 98.7
[2020-06-25] MEDS ORDERED: GABA300C2 PO (12:53)
[2020-06-25] MEDS ORDERED: PROM25TA52 PO (12:53)
[2020-06-25] MEDS ORDERED: DOXYCYCL HYC100 MG PO (12:55)
[2020-06-25] MEDS ORDERED: ALLERGY25 M2 PO (12:56)
[2020-06-25] MEDS ORDERED: AMOX875T8 PO (12:57)
[2020-06-25] MEDS ORDERED: PERCOCET1 TA3 PO (12:58)
== END 2020-04-30 22:35 | disposition home or self-care (01) ==
LOC: ED 21:06
DX: N39.0 Urinary tract infection, site not specified (principal); G89.29 Other chronic pain
CPT/HCPCS: 81000; 87077; 87086; 87088; 87186; 99283

== ENCOUNTER 2020-05-06 16:30 | Emergency (ER) | payer OTHER ==
[~2020-05-06] VITALS: Ht 170.2 cm; Wt 47.6 kg
[2020-05-06 16:40] VITALS: TEMP 99.9
[2020-05-06 17:27] LABS: PLATELET COUNT 386 K/uL (152-353)
[2020-05-06 17:35] LABS: POTASSIUM 4.9 mmol/L (3.6-5.2)
[2020-05-06 19:20] VITALS: BP 110/62
[2020-06-25] MEDS ORDERED: GABA300C2 PO (12:53)
[2020-06-25] MEDS ORDERED: PROM25TA52 PO (12:53)
[2020-06-25] MEDS ORDERED: DOXYCYCL HYC100 MG PO (12:55)
[2020-06-25] MEDS ORDERED: ALLERGY25 M2 PO (12:56)
[2020-06-25] MEDS ORDERED: AMOX875T8 PO (12:57)
[2020-06-25] MEDS ORDERED: PERCOCET1 TA3 PO (12:58)
== END 2020-05-06 19:20 | disposition home or self-care (01) ==
LOC: ED 16:30
PROVIDERS: Emergency Medicine
DX: G89.29 Other chronic pain (principal); D57.00 Hb-SS disease with crisis, unspecified; N39.0 Urinary tract infection, site not specified
CPT/HCPCS: 80053; 80307; 81000; 81025; 85027; 87088; 96360; 99284

== ENCOUNTER 2020-05-07 15:26 | Emergency (ER) | payer OTHER ==
[~2020-05-07] VITALS: Ht 170.2 cm; Wt 49.0 kg
[2020-05-07 20:30] VITALS: BP 104/67; TEMP 99
[2020-06-25] MEDS ORDERED: PROM25TA52 PO (12:53)
[2020-06-25] MEDS ORDERED: GABA300C2 PO (12:53)
[2020-06-25] MEDS ORDERED: DOXYCYCL HYC100 MG PO (12:55)
[2020-06-25] MEDS ORDERED: ALLERGY25 M2 PO (12:56)
[2020-06-25] MEDS ORDERED: AMOX875T8 PO (12:57)
[2020-06-25] MEDS ORDERED: PERCOCET1 TA3 PO (12:58)
== END 2020-05-07 20:30 | disposition home or self-care (01) ==
LOC: ED 15:26
DX: K04.7 Periapical abscess without sinus (principal); D57.1 Sickle-cell disease without crisis; Z79.2 Long term (current) use of antibiotics
CPT/HCPCS: 80307; 80362; 80375; 96365; 96372; 96375; 96376; 99284; J1200; J1642; J2175; J2550

== ENCOUNTER 2020-05-13 16:56 | Emergency (ER) | payer OTHER ==
[~2020-05-13] VITALS: Ht 170.2 cm; Wt 49.0 kg
[2020-05-13 17:33] VITALS: TEMP 99
[2020-05-13 18:31] LABS: POTASSIUM 4.1 mmol/L (3.6-5.2)
[2020-05-13 18:40] LABS: PARTIAL THROMBOPLASTIN TIME 30.2 SECONDS (24.5-33.6)
[2020-05-13 18:41] LABS: PLATELET COUNT 351 K/uL (152-353)
[2020-05-13 21:15] VITALS: BP 98/56
[2020-06-25] MEDS ORDERED: GABA300C2 PO (12:53)
[2020-06-25] MEDS ORDERED: PROM25TA52 PO (12:53)
[2020-06-25] MEDS ORDERED: DOXYCYCL HYC100 MG PO (12:55)
[2020-06-25] MEDS ORDERED: ALLERGY25 M2 PO (12:56)
[2020-06-25] MEDS ORDERED: AMOX875T8 PO (12:57)
[2020-06-25] MEDS ORDERED: PERCOCET1 TA3 PO (12:58)
== END 2020-05-13 21:30 | disposition home or self-care (01) ==
LOC: ED 16:56
PROVIDERS: Hospitalist
DX: D57.00 Hb-SS disease with crisis, unspecified (principal); R07.89 Other chest pain; Z79.899 Other long term (current) drug therapy; Z51.81 Encounter for therapeutic drug level monitoring
CPT/HCPCS: 36415; 80053; 80307; 81000; 81025; 85007; 85027; 85044; 85610; 85730; 87088; 93005; 96361; 96365; 96372; 96375; 99284; J1642; J1885; J1956; J2175; J2405; J2543; J2550

== ENCOUNTER 2020-05-17 15:16 | Emergency (ER) | payer OTHER ==
[~2020-05-17] VITALS: Ht 170.2 cm; Wt 49.0 kg
[2020-05-17 18:31] LABS: PLATELET COUNT 346 K/uL (152-353)
[2020-05-17 18:36] LABS: POTASSIUM 3.6 mmol/L (3.6-5.2)
[2020-05-17 18:59] LABS: PARTIAL THROMBOPLASTIN TIME 28.1 SECONDS (24.5-33.6)
[2020-05-17 20:25] VITALS: BP 104/59; TEMP 97.8
[2020-06-25] MEDS ORDERED: GABA300C2 PO (12:53)
[2020-06-25] MEDS ORDERED: PROM25TA52 PO (12:53)
[2020-06-25] MEDS ORDERED: DOXYCYCL HYC100 MG PO (12:55)
[2020-06-25] MEDS ORDERED: ALLERGY25 M2 PO (12:56)
[2020-06-25] MEDS ORDERED: AMOX875T8 PO (12:57)
[2020-06-25] MEDS ORDERED: PERCOCET1 TA3 PO (12:58)
== END 2020-05-17 20:25 | disposition home or self-care (01) ==
LOC: ED 15:16
PROVIDERS: Hospitalist
DX: D57.00 Hb-SS disease with crisis, unspecified (principal); D63.8 Anemia in other chronic diseases classified elsewhere; I49.8 Other specified cardiac arrhythmias; Z79.899 Other long term (current) drug therapy; Z51.81 Encounter for therapeutic drug level monitoring
CPT/HCPCS: 36415; 80053; 80307; 81000; 85027; 85044; 85610; 85730; 87086; 87088; 96360; 96372; 96375; 99284; J1642; J1885; J2405; J2550

== ENCOUNTER 2020-06-21 20:46 | Emergency (ER) | payer OTHER ==
[~2020-06-21] VITALS: Ht 170.2 cm; Wt 51.3 kg
[2020-06-21 21:37] LABS: PLATELET COUNT 301 K/uL (152-353)
[2020-06-21 21:48] LABS: POTASSIUM 3.9 mmol/L (3.6-5.2)
[2020-06-21 23:29] VITALS: BP 110/71; TEMP 98
== END 2020-06-21 23:28 | disposition home or self-care (01) ==
LOC: ED 20:46
PROVIDERS: Hospitalist
DX: D57.00 Hb-SS disease with crisis, unspecified (principal); G89.29 Other chronic pain; Z79.899 Other long term (current) drug therapy
CPT/HCPCS: 36415; 80053; 80307; 81000; 81025; 85027; 85044; 87088; 96360; 96365; 96372; 96375; 99284; J1200; J1642; J1885; J2550; J3490

== ENCOUNTER 2020-07-08 19:52 | Emergency (ER) | payer OTHER ==
[~2020-07-08] VITALS: Ht 170.2 cm; Wt 51.3 kg
[~2020-07-08 19:52] MED LIST changes: +ALLERGY25 M2 PO; +AMOX875T8 PO; +DOXYCYCL HYC100 MG PO; +GABA300C2 PO; +PERCOCET1 TA3 PO
[2020-07-08 20:35] LABS: POTASSIUM 3.7 mmol/L (3.6-5.2)
[2020-07-08 20:48] LABS: PLATELET COUNT 285 K/uL (152-353)
[2020-07-08 20:50] LABS: PARTIAL THROMBOPLASTIN TIME 28.5 SECONDS (24.5-33.6)
[2020-07-08 22:31] VITALS: BP 103/66; TEMP 98.7
== END 2020-07-08 22:31 | disposition home or self-care (01) ==
LOC: ED 19:52
PROVIDERS: Hospitalist
DX: D57.00 Hb-SS disease with crisis, unspecified (principal); M79.605 Pain in left leg; M79.604 Pain in right leg
CPT/HCPCS: 36415; 80053; 80307; 81000; 81025; 85008; 85027; 85044; 85610; 85730; 96360; 96361; 96372; 96374; 96375; 99284; J1642; J1885; J2550; J2930

== ENCOUNTER 2020-07-10 08:13 | Inpatient (IN) | payer OTHER ==
[~2020-07-10] VITALS: Ht 170.2 cm; Wt 56.2 kg
[2020-07-10 08:20] VITALS: BP 111/75; TEMP 98.7
[2020-07-10 09:13] LABS: PLATELET COUNT 276 K/uL (152-353)
[2020-07-10 09:22] LABS: POTASSIUM 3.8 mmol/L (3.6-5.2)
[2020-07-10 15:25] VITALS: BP 122/78; TEMP 98.6; Ht 170.2 cm; Wt 56.2 kg
[2020-07-10 20:08] VITALS: BP 106/65; TEMP 98.3
--- NOTE | 2020-07-10 22:14 | NUR ---
PT REQUESTED PAIN MED FOR LEVEL 8 PAIN IN HIPS AND LEGS. DEMEROL 25 MG, BENADRYL 25MG, AND PHENERGAN 25MG GIVEN IV.
[2020-07-11 00:27] VITALS: BP 102/55; TEMP 98.5
[2020-07-11 03:56] VITALS: BP 107/67; TEMP 99.1
[2020-07-11 06:09] LABS: PLATELET COUNT 292 K/uL (152-353)
[2020-07-11 06:17] LABS: POTASSIUM 4.1 mmol/L (3.6-5.2)
[2020-07-11 08:00] VITALS: BP 118/73; TEMP 99.4
[2020-07-11 12:00] VITALS: BP 125/71; TEMP 98.8
--- NOTE | 2020-07-11 13:13 | NUR ---
New Admission and has disgnosis of Sicle Cell Anemia and is on a Regular diet plan; 5'7" and IBW = 135+/-10% (121 to 149 lbs.) kcal needs x 25 = 1500, x 30 = 1800, x 35 = 2200, x 40 = 2500 kcal/day, protein needs x .8 to 1.5 = 49 to 92 grams per day, fluids x 25 to 40 = 1500 to 2200 ml/cc per day. BMI = 89% of IBW and BMI at 18.79 and is wnl's but at the lower percent. 35YOF with dx. of Sickle Cell Crisis and labs reveal WBC 22.8, Hgb, Hct, RBC and Bun and Creta all depressed and RDW elevated and gl 113 elevated.- all the labs stated are abnormal and other labs are wnl's. Dx. of atrial fib, Chronic bone pain, CP, VALENCIA, Chronic Hemolytic Anemia, Nausea, Sever cickness, Sickle Cell Anemia, Sickle Cell with crisis, pruritic d/o, UTI and is on Pepcid, D51/2nS, Phenegan, Benaryly, Demerol, Zofran and see EMR for all medicaitons and RD reviewed all medications and whole chart. RD Recommendations: 1-Monitor Labs 2-PT to work with the patient 3-OT to work with the patinet 4-Increase foods high in Fe 5-Add a supplement with meals 6-Add MVI 7-Add Appetite stimulant 8-Add Vitamin C 500 mg BID 9-Add ZNSO4 220 mg per day and d/c in 14 days 10-[place] all food prefernces and offer substitutes wiht all meals.
[2020-07-11 16:00] VITALS: BP 125/71; TEMP 98.8
[2020-07-11 20:15] VITALS: BP 110/69; TEMP 98.9
[2020-07-12 00:07] VITALS: BP 105/64; TEMP 98
--- NOTE | 2020-07-12 01:29 | NUR ---
PATIENT REPORTS HIP AND LEG PAIN, PATIENT REPOSITIONED AND GIVEN PRN PAIN MEDICATION.
[2020-07-12 04:22] VITALS: BP 111/70; TEMP 98.3
--- NOTE | 2020-07-12 04:55 | NUR ---
PATIENT REPORTED PAIN IN HER HIPS AND LEGS. PATIENT WAS GIVEN PRN PAIN MEDICATION
[2020-07-12 05:59] LABS: POTASSIUM 3.7 mmol/L (3.6-5.2)
[2020-07-12 06:10] LABS: PLATELET COUNT 291 K/uL (152-353)
--- NOTE | 2020-07-12 07:35 | NUR ---
PT LAYING IN BED ON HER PHONE. IVF INFUSING WITHOUT DIFFICULTY. PT REQUESTS HER PAIN MEDICATION WHEN IT IS TIME FOR IT. NAD NOTED.
[2020-07-12 08:00] VITALS: BP 112/66; TEMP 98.5
--- NOTE | 2020-07-12 08:45 | NUR ---
PT C/O PAIN 09/11, HER SHOULDERS AND BACK. PT'S AM ASSESSMENT COMPLETED AT THIS TIME. DR. ALVAREZ AT PT'S BEDSIDE. NO NEW ORDERS REC'D AT THIS TIME. PT GIVEN PAIN MEDS PER MD ORDERS. IVF INFUSING WITHOUT DIFFICULTY. PT ON HER PHONE.
[2020-07-12 12:00] VITALS: BP 122/77; TEMP 98.6
[2020-07-12 16:00] VITALS: BP 114/72; TEMP 98.3
[2020-07-12 20:00] VITALS: BP 120/78; TEMP 98.6
[2020-07-13 00:12] VITALS: BP 115/78; TEMP 98.4
[2020-07-13 04:00] VITALS: BP 115/71; TEMP 98.1
[2020-07-13 06:08] LABS: PLATELET COUNT 219 K/uL (152-353)
--- NOTE | 2020-07-13 07:45 | NUR ---
PT LAYING IN BED ON HER RIGHT SIDE ON HER PHONE. IVF INFUSING WITHOUT DIFFICUTLY AT THIS TIME. PT DENIES ANY C/O OR NEEDS AT THIS TIME.
[2020-07-13 08:00] VITALS: BP 132/71; TEMP 98.6
[2020-07-13 12:00] VITALS: BP 141/86; TEMP 98.6
[2020-07-13 16:00] VITALS: BP 126/77; TEMP 99
[2020-07-13 20:00] VITALS: BP 109/67; TEMP 98.7
[2020-07-14] VITALS: BP 113/72; TEMP 98.5
[2020-07-14 04:00] VITALS: BP 114/72; TEMP 98.6
[2020-07-14 05:33] LABS: PLATELET COUNT 231 K/uL (152-353)
[2020-07-14 05:45] LABS: POTASSIUM 4.3 mmol/L (3.6-5.2)
[2020-07-14 08:00] VITALS: BP 111/74; TEMP 99
[2020-07-14 12:00] VITALS: BP 117/82; TEMP 98.5
--- NOTE | 2020-07-14 15:44 | NUR ---
DC INSTRUCTIONS EXPLAINED TO PT WHO VERBALIZED UNDERSTANDING. PAC TO LCW D/C PER PROTOCOL. PT FLYNN WELL, SITE COVERED WITH GAUZE AND TAPE.
--- NOTE | 2020-07-14 16:00 | NUR ---
DC INSTRUCTIONS EXPLAINED TO PT WHO VERBALIZED UNDERSTANDING. PT LEFT FLOOR IN NAD WITH FAMILY MEMBER.
== END 2020-07-14 16:00 | disposition home or self-care (01) | DRG 812 ==
LOC: ED 08:13 → MED/SURG 13:05
PROVIDERS: ADMIT Family Medicine; ATTEND Internal Medicine Endocrinology, Diabetes & Metabolism
DX: D57.818 Other sickle-cell disorders with crisis with other specified complication (principal); G89.4 Chronic pain syndrome
CPT/HCPCS: 36415; 80048; 80053; 80307; 81000; 81025; 82150; 83690; 85007; 85027; 85044; 87635; 96360; 96366; 96374; 96375; 96376; 99284; J1200; J1642; J1650; J1885; J2175; J2405; J2550; J3480; U0003

== ENCOUNTER 2020-07-27 21:05 | Emergency (ER) | payer OTHER ==
[~2020-07-27] VITALS: Ht 170.2 cm; Wt 51.3 kg
[2020-07-27 23:05] LABS: PLATELET COUNT 316 K/uL (152-353)
[2020-07-27 23:17] LABS: POTASSIUM 4.7 mmol/L (3.6-5.2)
[2020-07-28 02:09] VITALS: BP 110/68; TEMP 98.5
== END 2020-07-28 02:09 | disposition home or self-care (01) ==
LOC: ED 21:05
PROVIDERS: Family Medicine
DX: D57.00 Hb-SS disease with crisis, unspecified (principal)
CPT/HCPCS: 36415; 80053; 83605; 85027; 85044; 96360; 96375; 96376; 99284; J1200; J2175; J2550

== ENCOUNTER 2020-08-05 14:27 | Emergency (ER) | payer OTHER ==
[~2020-08-05] VITALS: Ht 170.2 cm; Wt 51.3 kg
[2020-08-05 14:36] VITALS: BP 105/57; TEMP 97.9
== END 2020-08-05 16:11 | disposition home or self-care (01) ==
LOC: ED 14:27
DX: M79.18 Myalgia, other site (principal); R11.0 Nausea
CPT/HCPCS: 96372; 99283; J1885; J2405

== ENCOUNTER 2020-08-05 20:30 | Inpatient (IN) | payer OTHER ==
[~2020-08-05] VITALS: Ht 170.2 cm; Wt 52.4 kg
[2020-08-05 20:35] VITALS: BP 118/55; TEMP 99
[2020-08-05 22:22] LABS: POTASSIUM 4.3 mmol/L (3.6-5.2)
[2020-08-05 22:29] LABS: PLATELET COUNT 256 K/uL (152-353)
--- NOTE | 2020-08-05 23:50 | NUR ---
PATIENT ARRIVED ON FLOOR VIA W/C. TAKEN TO ROOM 1111. ORIENTED TO SURROUNDINGS AND CALL LIGHT. NAD NOTED. PATIENT LYING IN BED ON HER CELL PHONE AT THIS TIME.
[2020-08-06] VITALS (15 sets, daily range): BP systolic 101–130; BP diastolic 47–85; TEMP 98.1–99.4; Ht 170.2 cm; Wt 52.4 kg
--- NOTE | 2020-08-06 00:15 | NUR ---
IN TO CHECK ON PATIENT. ASSESSMENT PERFORMED. PATIENT C/O LEFT HIP PAIN MOSTLY. 22G TO LEFT FOREARM INTACT. NO SWELLING OR ERYTHEMA NOTED. ZOSYN RUNNING AFTER BEING STARTED IN ER. ONCE FINISHED, NS WAS STARTED @ 125ML/HR. PATIENT RESPIRATIONS ARE EVEN AND UNLABORED. SHE IS LYING IN BED PLAYING ON HER CELL PHONE. NAD NOTED. DENIES ANY CONCERNS OR COMPLAINTS AT THIS TIME. CALL LIGHT WITHIN REACH.
--- NOTE | 2020-08-06 00:50 | NUR ---
COVID SWAB X2 PERFORMED ON PATIENT. THE FIRST SWAB WAS DROPPED ON THE FLOOR. SECOND SWAB OBTAINED WITH NO COMPLICATIONS. PATIENT TOLERATED WELL.
--- NOTE | 2020-08-06 03:20 | NUR ---
PATIENT REQUESTING SOMETHING FOR PAIN. WHEN TOLD THAT THE ER PHYSICIAN ORDERED DEMEROL 50MG Q6H, SHE BECAME UPSET STATING THAT OVER THE LAST THREE HOSPITALIZATIONS SHE HAS GOTTEN PAIN MEDICATION Q4H. I EXPLAINED THAT THE ER DOCTOR ORDERED IT DIFFERENTLY AND THE HOSPITALIST COULD CHANGE IT IF THEY CHOSE TO DO SO IN THE MORNING. SHE ASKED THAT I CALL THE ER DOCTOR TO REQUEST SCHEDULING SOONER.
--- NOTE | 2020-08-06 03:24 | NUR ---
SPOKE WITH DR. SIN REGARDING PATIENT'S REQUEST FOR MORE FREQUENT DOSES OF DEMEROL. HE AGREED. NEW ORDER GIVEN FOR DEMEROL 50MG IV Q4H PRN PAIN. READ BACK AND VERIFIED. NO FURTHER ORDERS GIVEN.
--- NOTE | 2020-08-06 04:00 | NUR ---
DEMEROL 50MG GIVEN VIA SLOW IVP. NO OTHER CONCERNS VOICED BY PATIENT AT THIS TIME. SHE IS LYING IN BED ON HER CELL PHONE. NAD NOTED. PATIENT BECAME MORE PLEASANT AT THIS TIME. CALL LIGHT WITHIN REACH.
--- NOTE | 2020-08-06 06:00 | NUR ---
IN TO HANG ZOSYN IVPB. PATIENT REQUESTING BENADRYL NOW.
[2020-08-06 06:01] LABS: PLATELET COUNT 222 K/uL (152-353); POTASSIUM 4.4 mmol/L (3.6-5.2)
--- NOTE | 2020-08-06 06:14 | NUR ---
LAB CALLED WITH CRITICAL RESULTS FOR THIS PATIENT. WBC 24.0, HGB 5.2, HCT 14.3
--- NOTE | 2020-08-06 06:15 | NUR ---
CALLED AND SPOKE WITH DR. SIN REGARDING PATIENT'S CRITICAL LABS. ORDERS GIVEN TO TRANSFUSE TWO UNITS OF PRBCS. GIVE BENADRYL 50MG IV AFTER EACH UNIT IS GIVEN. READ BACK AND VERIFIED. NO FURTHER ORDERS GIVEN.
--- NOTE | 2020-08-06 10:27 | NUR ---
08/06/20 0900 SPOKE WITH LAB STATED THAT PT BLOOD FOR TRANSFUSION WILL BE TRANSPORTED IN FROM [facility] NEEDED STAT AND IT WILL BE BROUGHT LATER TODAY. STATED IT WILL BE FINE TO BE BROUGHT IN AM.LAB NOTIFIED.CC
--- NOTE | 2020-08-06 16:11 | NUR ---
08/06/20 1605 FIRST UNIT PRBC'S STARTED WITHOUT DIFFICULTY.LAB NOTIFIED PRIOR TO BLOOD ADMINSTRATION BLOOD BAG AND BLOOD BAND MATCH ON BIRTHDATE OF [birth year].BUT VERIFICATION SHEET STATED 06/04/20 WRITTEN ON PAPER.LAB STATED OKAY TO PROCEED WITH TRANSFUSION.CC 08/07/19 1613 NO PROBLEMS WITH TRANSFUSION TOLERATING WELL.
--- NOTE | 2020-08-06 17:54 | NUR ---
08/06/20 3628 RESTING IN BED BLOOD TRANSFUSION IN PROGRESS.NO LUNCH EATEN FOR TODAY.NO EMESIS NOTED.CC
--- NOTE | 2020-08-06 21:54 | NUR ---
PATIENT AT 2100 ACKED FOR PRN PAIN MEDICATION. 2148 ORDERED BLOOD IS STARTED.
--- NOTE | 2020-08-06 23:33 | NUR ---
PATIENT DENIES ANY PAIN OR DIZZINSS. PATIENT IS RESTING QUIETLY
--- NOTE | 2020-08-07 00:43 | NUR ---
PATIENT BLOOD TRANSFUSION COMPLETE. PATIENT REPORTS NO ADVERSE REACTIONS. PATIENT DENIES ANY PAIN OR SHORTNESS OF BREATH.
--- NOTE | 2020-08-07 04:12 | NUR ---
PATIENT IS RESTING. PATIENT IS ON PHONE SPEAKING WITH FRIENDS
[2020-08-07 04:28] VITALS: BP 96/22; TEMP 98.5
--- NOTE | 2020-08-07 05:12 | NUR ---
PATIENT IS UP IN THE BED PLAYING A GAME ON HER PHONE
[2020-08-07 07:56] LABS: PLATELET COUNT 219 K/uL (152-353)
[2020-08-07 07:58] LABS: POTASSIUM 4.5 mmol/L (3.6-5.2)
[2020-08-07 08:00] VITALS: BP 113/68; TEMP 98.5
[2020-08-07 12:03] VITALS: BP 120/77; TEMP 98.3
[2020-08-07 15:59] VITALS: BP 111/75; TEMP 98.1
[2020-08-07 19:48] VITALS: BP 116/83; TEMP 98.2
--- NOTE | 2020-08-07 22:37 | NUR ---
COMPLAINTS OF SCA PAIN. CHRONIC PAIN. MEDICATED WITH DEMEROL 50 MG IV. PT REQUESTED BENADRYL IV ORDERED ALSO.
[2020-08-08] VITALS (7 sets, daily range): BP systolic 103–121; BP diastolic 55–72; TEMP 98.3–100.7
--- NOTE | 2020-08-08 00:59 | NUR ---
PT IS AWAKE. USING HER CELL PHONE TO WATCH VIDEOS. O2 AT 2L PLACED ON. O2 SATS 90-92 PERCENT. NO COMPLAINTS VOICED AT THIS TIME.
--- NOTE | 2020-08-08 02:09 | NUR ---
COMPLAINS OF NAUSEA AND SICKLE CELL PAIN. MEDICATED WITH DEMEROL 50 MG IVSP AND PHENERGAN IVPB ORDERED.
[2020-08-08 07:27] LABS: POTASSIUM 4.4 mmol/L (3.6-5.2)
[2020-08-08 07:30] LABS: PLATELET COUNT 213 K/uL (152-353)
--- NOTE | 2020-08-08 10:30 | NUR ---
PATIENT REQUESTED PAIN MEDICATION AT THIS TIME. PATIENT RESTING IN BED PLAYING A GAME ON CELLPHONE. NAD NOTED. PATIENT STATED THAT PAIN WAS 8 OUT OF 10 IN HIPS AND LEGS. PRN DEMEROL GIVEN PER MD ORDERS. NS INFUSING AT 100 ML/ HR TO PORT AT THIS TIME. PATIENT FREE OF NEEDS AT THIS TIME.
--- NOTE | 2020-08-08 12:48 | NUR ---
NOTIFIED OF CXR RESULTS NEW ORDER FOR DOXYCYCLINE GIVEN. DRUG INTERACTION VERIFIED WITH . APPROVED ABT
--- NOTE | 2020-08-08 13:00 | NUR ---
VERBAL ORDER RECEIVED FROM DR. ALVAREZ TO DECREASE FLUIDS TO 50 ML/HR.
--- NOTE | 2020-08-08 15:35 | NUR ---
PATIENT HAS BEEN ENCOURAGED THROUGHOUT THE DAY TO TAKE A SHOWER AND CHANGE LINENS. PATIENT STATED THAT SHE WANTED TO WAIT UNTIL MARTINA ARRIVES FOR HIM TO HELP HER SHOWER. SHE SPILLED RED DRINK IN THE BED. PROVIDER RELATIONS REP ASKED IF SHE WOULD LIKE HER LINENS CHANGED AND SHE REFUSED.
--- NOTE | 2020-08-08 15:48 | NUR ---
ENCOURAGED PT TO TAKE A SHOWER AND ALLOW STAFF TO CHANGE HER SHEETS 5 TIMES THIS PT DECLINES EACH TIME THE 5TH TIME PT WAS ENCOURAGED TO GET A SHOWER SHE STATED [facility] SO HE COULD ASSIST HER. STAFF OBSERVED PT IN BATHROOM URINATING PRIOR TO HER CXR. SHE WAS OBSERVED AGAIN URINATING BEFORE LUNCH. PT TOLD MYCOLOGY TEACHER THAT SHE HAS NOT VOIDED AT ALL TODAY.
--- NOTE | 2020-08-08 21:08 | NUR ---
PT SAT ON SIDE OF THE BED AND BATHED HERSELF. LINENS WERE CHANGED. INSTRUCTED PT TO AMBULATE IN ROOM MORE OFTEN. PT VOICED UNDERSTANDING.
--- NOTE | 2020-08-08 22:17 | NUR ---
COMPLAINTS OF SICKLE CELL PAIN/BONES/ACHES. MEDICATED WITH DEMEROL 50 MG IVSP, BENADRYL IVSP ORDERED.
--- NOTE | 2020-08-08 23:25 | NUR ---
MEDICATION EFFECTIVE. PT RESTING WITH EYES CLOSED. NAD NOTED.
--- NOTE | 2020-08-09 00:15 | NUR ---
PATIENT CALLED REQUESTING DEMEROL, PHENERGAN AND BENADRYL. INFORMED PATIENT THAT IT WOULD BE A FEW MORE MINUTES. SHE VERBALIZED UNDERSTANDING.
--- NOTE | 2020-08-09 02:46 | NUR ---
COMPLAINTS OF PAIN. MEDICATED WITH DEMEROL 50 MG SIVP.
[2020-08-09 04:17] VITALS: BP 101/55; TEMP 99.9
[2020-08-09 05:39] LABS: PLATELET COUNT 223 K/uL (152-353)
[2020-08-09 05:51] LABS: POTASSIUM 3.9 mmol/L (3.6-5.2)
--- NOTE | 2020-08-09 07:15 | NUR ---
PT NOTED TO BE LAYING IN BED ON LEFT SIDE RESTING QUIETLY WITH EYES CLOSED. IVF INFUSING WITHOUT DIFFICULTY. NAD NOTED.
[2020-08-09 08:00] VITALS: BP 130/76; TEMP 99.3
[2020-08-09 12:00] VITALS: BP 123/72; TEMP 98.7
[2020-08-09 16:00] VITALS: BP 110/59; TEMP 99.1
[2020-08-09 20:00] VITALS: BP 112/62; TEMP 100
--- NOTE | 2020-08-09 20:05 | NUR ---
ENTERED PATIENT'S ROOM. PATIENT RESTING QUIETLY IN BED. ON CELL PHONE. NAD NOTED. RESPIRATIONS EVEN AND UNLABORED. PHENERGAN COMPLETE. PORT TO LEFT CHEST SALINE LOCKED WITH NO COMPLICATIONS. CALL LIGHT WITHIN REACH.
[2020-08-10] VITALS: BP 120/67; TEMP 98.9
--- NOTE | 2020-08-10 01:15 | NUR ---
PHENERGAN FINISHED. PATIENT LYING IN BED ON CELL PHONE. NAD NOTED. NC INTACT @ 2L/MIN. PORT TO LEFT CHEST SALINE LOCKED AT THIS TIME. CALL LIGHT WITHIN REACH.
[2020-08-10 04:00] VITALS: BP 108/62; TEMP 98.7
--- NOTE | 2020-08-10 04:40 | NUR ---
PATIENT CALLED REQUESTING PAIN MEDICATION. DEMEROL 50MG GIVEN VIA SLOW IVP. RESTING QUIETLY IN BED WITH EYES CLOSED. RESPIRATIONS EVEN AND UNLABORED. NAD NOTED. CALL LIGHT WITHIN REACH.
[2020-08-10 07:00] LABS: PLATELET COUNT 221 K/uL (152-353)
[2020-08-10 08:00] VITALS: BP 99/58; TEMP 99.2
--- NOTE | 2020-08-10 08:15 | NUR ---
LAB CALLED AND REPORTED HGB OF 6.2. DR ALVAREZ INFOMRED. NO NEW ORDERS REC'D AT THIS TIME.
[2020-08-10 08:22] LABS: POTASSIUM 3.8 mmol/L (3.6-5.2)
[2020-08-10 12:00] VITALS: BP 116/70; TEMP 99.3
[2020-08-10 16:00] VITALS: BP 112/67; TEMP 98.9
--- NOTE | 2020-08-10 19:40 | NUR ---
ENTERED PATIENT'S ROOM. PATIENT LYING IN BED ON CELL PHONE. RESPIRATIONS UNLABORED. NAD NOTED. NON-COMPLIANT WITH NASAL CANNULA. PORT TO LEFT CHEST PATENT. FLUSHED WITH 10CC OF NS WITH NO COMPLICATIONS. DENIES ANY CONCERNS OR COMPLAINTS. BED LOCKED AND IN LOWEST POSITION. CALL LIGHT WITHIN REACH.
[2020-08-10 20:00] VITALS: BP 113/69; TEMP 98.9
--- NOTE | 2020-08-10 23:10 | NUR ---
PATIENT CALLED REQUESTING PAIN MEDICATION. DEMEROL 50MG GIVEN VIA IVP BY CHARGE NURSE. CALL LIGHT WITHIN REACH.
[2020-08-11] VITALS (7 sets, daily range): BP systolic 104–116; BP diastolic 59–72; TEMP 98.4–99.3
--- NOTE | 2020-08-11 03:20 | NUR ---
PATIENT CALLED REQUESTING DEMEROL, PHENERGAN AND BENADRYL. BENADRYL 50MG AND DEMEROL 50MG GIVEN VIA SLOW IVP. PHENERGAN GIVEN VIA IVPB @ 200ML/HR. NO OTHER CONCERNS OR COMPLAINTS VOICED. CALL LIGHT WITHIN REACH. 0350- PHENERGAN INFUSION COMPLETE. PORT TO LEFT CHEST FLUSHED WITH 10CC OF NS WITH NO COMPLICATIONS. CURO CAP APPLIED.
--- NOTE | 2020-08-11 05:50 | NUR ---
PATIENT RESTING QUIETLY IN BED WITH EYES CLOSED. RESPIRATIONS EVEN AND UNLABORED. NAD NOTED. SR UP X 2. CALL LIGHT WITHIN REACH.
[2020-08-11 07:03] LABS: PLATELET COUNT 244 K/uL (152-353)
[2020-08-11 07:08] LABS: POTASSIUM 3.6 mmol/L (3.6-5.2)
--- NOTE | 2020-08-11 09:06 | NUR ---
PT CONDITION AND CHART REVIEWED WITH NO NEW ORDERS GIVEN AT THIS TIME
--- NOTE | 2020-08-11 18:02 | NUR ---
PT RESTING QUIETLY IN NAD ON CELL PHONE. CALL LIGHT IN EASY REACH. WILL CONTINUE TO MONITOR.
[2020-08-12 04:00] VITALS: BP 110/57; TEMP 98.6
[2020-08-12 05:24] LABS: PLATELET COUNT 258 K/uL (152-353)
[2020-08-12 05:32] LABS: POTASSIUM 3.6 mmol/L (3.6-5.2)
--- NOTE | 2020-08-12 06:00 | NUR ---
PT HAD UNEVENTFUL NIGHT. REQUESTED PAIN MED Q 4HRS FOR LEVEL 7 PAIN IN LEFT HIP. NO DISTRESS NOTED.
--- NOTE | 2020-08-12 07:53 | NUR ---
ON ROUNDING THIS MORNING PATIENT WAS RESTING WITH EYES CLOSED BUT EASILY AWAKENS WHEN CALLING HER NAME. SHIFT ASSESSMENT COMPLETED. PATIENT CURRENT DENIES ANY N/V//D. HOWEVER PATIENT REPORTS PAIN TO HER LEFT HIP. PAIN IS INTERMITTENT AND DESCRIBES PAIN THROBBING WITH PAIN RATE 6 ON PAIN SCALE 0-10, STATES PAIN MEDICATION HELPS EASE THE PAIN BUT IT DOES NOT GO AWAY COMPLETELY;CHRONIC PAIN. PATIENT REPORTS LAST BOWEL MOVEMENT 08/10/20. IV TO THE LEFT CHEST PORT WALL IS PATENT AND INTACT WITH NO S/S OF INFILTRATION NOTED. BED IS LOCKED IN LOW POSITION, SIDE RAILS UP X2, CALL YO WITHIN REACH.
[2020-08-12 08:00] VITALS: BP 107/64; TEMP 98.6
[2020-08-12 12:00] VITALS: BP 115/60; TEMP 99
--- NOTE | 2020-08-12 12:34 | NUR ---
ONE TIME ORDER OF DEMEROL 50 MG GIVEN X1 DOSE IV PUSH AND BENADRYL 50 MG IV PUSH PER AND THEN AFTER ALLOTED TIME PATIENT CAN BE DISCHARGED HOME.
--- NOTE | 2020-08-12 14:12 | NUR ---
PATIENT GIVEN DISCHARGE INSTRUCTIONS WITH VERBAL UNDERSTANDING NOTED.
== END 2020-08-12 15:15 | disposition home or self-care (01) | DRG 811 ==
LOC: ED 20:30 → MED/SURG 22:45
PROVIDERS: Internal Medicine; ADMIT Family Medicine; ATTEND Internal Medicine Endocrinology, Diabetes & Metabolism
PROC: 30233N1 Transfusion of Nonautologous Red Blood Cells into Peripheral Vein, Percutaneous Approach (ICD-10-PCS; principal; 2020-08-06)
DX: D57.818 Other sickle-cell disorders with crisis with other specified complication (principal); J16.8 Pneumonia due to other specified infectious organisms; G89.4 Chronic pain syndrome
CPT/HCPCS: 36415; 80048; 80053; 80307; 81000; 85007; 85027; 86850; 86900; 86901; 86922; 87040; 87635; 94760; 96365; 96375; 99284; J1200; J1642; J1940; J2175; J2405; J2543; J2550; P9016; U0003

== ENCOUNTER 2020-09-01 13:20 | Emergency (ER) | payer OTHER ==
[2020-09-08 14:54] LABS: PLATELET COUNT 194 K/uL (152-353)
== END 2020-09-01 18:50 | disposition home or self-care (01) ==
LOC: ED 13:20
PROVIDERS: Family Medicine
DX: D57.80 Other sickle-cell disorders without crisis (principal); R07.89 Other chest pain
CPT/HCPCS: 36415; 80053; 82150; 83690; 85007; 85027; 93005; 96374; 96375; 99284; J1200; J2175; J2405

== ENCOUNTER 2020-10-01 10:00 | Emergency (ER) | payer OTHER ==
[~2020-10-01] VITALS: Ht 170.2 cm; Wt 49.0 kg
[2020-10-01 10:10] VITALS: TEMP 97
[2020-10-01 11:29] LABS: PLATELET COUNT 285 K/uL (152-353)
[2020-10-01 11:32] LABS: POTASSIUM 4.5 mmol/L (3.6-5.2)
[2020-10-01 14:57] VITALS: BP 104/64
== END 2020-10-01 14:58 | disposition home or self-care (01) ==
LOC: ED 10:00
PROVIDERS: Family Medicine
DX: D57.00 Hb-SS disease with crisis, unspecified (principal)
CPT/HCPCS: 80053; 81000; 81025; 85027; 85044; 96360; 96375; 96376; 99284; J1200; J1642; J2175; J2550

== ENCOUNTER 2020-10-07 01:21 | Emergency (ER) | payer OTHER ==
[~2020-10-07] VITALS: Ht 170.2 cm; Wt 51.3 kg
[2020-10-07 03:26] LABS: PLATELET COUNT 287 K/uL (152-353); POTASSIUM 3.6 mmol/L (3.6-5.2)
[2020-10-07 04:36] VITALS: BP 120/72; TEMP 98
== END 2020-10-07 04:36 | disposition home or self-care (01) ==
LOC: ED 01:21
PROVIDERS: Family Medicine
DX: D57.1 Sickle-cell disease without crisis (principal)
CPT/HCPCS: 36415; 80053; 80307; 85007; 85027; 96372; 99283; J2175; J2550

== ENCOUNTER 2020-10-09 13:40 | Emergency (ER) | payer OTHER ==
[~2020-10-09] VITALS: Ht 170.2 cm; Wt 51.3 kg
[2020-10-09 14:45] LABS: PLATELET COUNT 338 K/uL (152-353)
[2020-10-09 14:53] LABS: POTASSIUM 3.7 mmol/L (3.6-5.2)
[2020-10-09 15:47] VITALS: BP 103/66; TEMP 98.6
== END 2020-10-09 15:47 | disposition home or self-care (01) ==
LOC: ED 13:40
PROVIDERS: Emergency Medicine
DX: D57.1 Sickle-cell disease without crisis (principal)
CPT/HCPCS: 80048; 80307; 85027; 96372; 99283; J1200; J2175; J2550

== ENCOUNTER 2020-10-13 00:59 | Emergency (ER) | payer OTHER ==
[~2020-10-13] VITALS: Ht 170.2 cm; Wt 51.3 kg
[2020-10-13 02:10] LABS: PLATELET COUNT 330 K/uL (152-353)
[2020-10-13 02:57] LABS: SODIUM 138 mmol/L (136-145)
[2020-10-13 04:55] VITALS: BP 104/70; TEMP 98.7
== END 2020-10-13 04:55 | disposition home or self-care (01) ==
LOC: ED 00:59
PROVIDERS: Hospitalist
DX: R07.89 Other chest pain (principal); R00.2 Palpitations; D64.89 Other specified anemias
CPT/HCPCS: 36415; 80053; 80307; 81000; 81025; 82550; 83880; 84484; 85027; 93005; 96374; 96375; 99284; J1200; J1885; J2405

== ENCOUNTER 2020-10-19 13:22 | Emergency (ER) | payer OTHER ==
[~2020-10-19] VITALS: Ht 170.2 cm; Wt 50.8 kg
[2020-10-19 14:30] LABS: PLATELET COUNT 163 K/uL (152-353)
[2020-10-19 16:29] VITALS: BP 108/59; TEMP 98.9
== END 2020-10-19 16:29 | disposition home or self-care (01) ==
LOC: ED 13:22
PROVIDERS: Hospitalist
DX: D57.00 Hb-SS disease with crisis, unspecified (principal)
CPT/HCPCS: 36415; 80053; 81025; 85007; 85027; 85044; 96360; 96361; 99282; 99284; J1642

== ENCOUNTER 2020-10-30 17:17 | Emergency (ER) | payer OTHER ==
[~2020-10-30] VITALS: Ht 170.2 cm; Wt 50.8 kg
[2020-10-30 17:45] VITALS: TEMP 99.8
[2020-10-30 21:16] LABS: PLATELET COUNT 374 K/uL (152-353)
[2020-10-30 21:23] LABS: POTASSIUM 4.5 mmol/L (3.6-5.2)
[2020-10-31 00:08] VITALS: BP 99/56
== END 2020-10-31 00:08 | disposition home or self-care (01) ==
LOC: ED 17:17
PROVIDERS: Family Medicine
DX: D57.00 Hb-SS disease with crisis, unspecified (principal); I51.7 Cardiomegaly
CPT/HCPCS: 36415; 80053; 81000; 81025; 85027; 85044; 93005; 96360; 96374; 96375; 99284; J1200; J1642; J1885; J2175

== ENCOUNTER 2020-11-01 19:47 | Emergency (ER) | payer OTHER ==
[~2020-11-01] VITALS: Ht 170.2 cm; Wt 50.8 kg
[2020-11-01 21:59] LABS: PLATELET COUNT 371 K/uL (152-353)
[2020-11-01 22:07] LABS: POTASSIUM 4.4 mmol/L (3.6-5.2); SODIUM 142 mmol/L (136-145)
[2020-11-02 00:15] VITALS: BP 110/72; TEMP 98.1
== END 2020-11-02 00:15 | disposition home or self-care (01) ==
LOC: ED 19:47
PROVIDERS: Emergency Medicine Emergency Medical Services
DX: D57.00 Hb-SS disease with crisis, unspecified (principal)
CPT/HCPCS: 36415; 80053; 83735; 84484; 85027; 85044; 93005; 96360; 96361; 96375; 99284; J1170; J1200; J1642

== ENCOUNTER 2020-11-21 23:30 | Emergency (ER) | payer OTHER ==
[~2020-11-21] VITALS: Ht 170.2 cm; Wt 50.8 kg
[2020-11-22 00:47] LABS: PLATELET COUNT 362 K/uL (152-353)
[2020-11-22 01:06] LABS: POTASSIUM 4.5 mmol/L (3.6-5.2)
[2020-11-22 01:50] VITALS: BP 100/55; TEMP 100.7
== END 2020-11-22 01:50 | disposition home or self-care (01) ==
LOC: ED 23:30
PROVIDERS: Hospitalist
DX: J06.9 Acute upper respiratory infection, unspecified (principal); R50.9 Fever, unspecified; D57.1 Sickle-cell disease without crisis; D63.8 Anemia in other chronic diseases classified elsewhere; Z20.822 Contact with and (suspected) exposure to COVID-19
CPT/HCPCS: 80053; 85008; 85027; 85044; 87635; 96372; 99283; J1100; J1885; U0003

== ENCOUNTER 2020-11-28 20:56 | Emergency (ER) | payer OTHER ==
[~2020-11-28] VITALS: Ht 170.2 cm; Wt 51.3 kg
[2020-11-28 21:51] LABS: PLATELET COUNT 321 K/uL (152-353)
[2020-11-28 22:21] LABS: POTASSIUM 3.9 mmol/L (3.6-5.2); SODIUM 138 mmol/L (136-145)
[2020-11-28 23:32] VITALS: BP 95/64; TEMP 99.1
== END 2020-11-28 23:32 | disposition home or self-care (01) ==
LOC: ED 20:56
PROVIDERS: Hospitalist
DX: U07.1 COVID-19 (principal); J06.9 Acute upper respiratory infection, unspecified; R11.2 Nausea with vomiting, unspecified; R19.7 Diarrhea, unspecified; D57.1 Sickle-cell disease without crisis; D63.8 Anemia in other chronic diseases classified elsewhere; Z79.899 Other long term (current) drug therapy; Z51.81 Encounter for therapeutic drug level monitoring
CPT/HCPCS: 36415; 80053; 80307; 81000; 81025; 82550; 83880; 84484; 85027; 85610; 85730; 93005; 96360; 96375; 99284; J1100; J1642; J1885; J2405

== ENCOUNTER 2020-12-16 11:31 | Inpatient (IN) | payer OTHER ==
[~2020-12-16] VITALS: Ht 170.2 cm; Wt 57.6 kg
[2020-12-16 11:37] VITALS: BP 98/49; TEMP 97.9
[2020-12-16 12:00] VITALS: BP 115/73
[2020-12-16 12:24] LABS: PLATELET COUNT 271 K/uL (152-353)
[2020-12-16 12:29] LABS: POTASSIUM 4.3 mmol/L (3.6-5.2)
[2020-12-16 16:17] VITALS: BP 157/52; TEMP 98.8; Ht 170.2 cm; Wt 57.6 kg
[2020-12-16] MEDS ORDERED: ELIQUIS5 MG PO (17:49)
[2020-12-16] MEDS ORDERED: ONDA4TAB3 PO (17:50)
[2020-12-16 20:00] VITALS: BP 110/58; TEMP 98.9
[2020-12-17] VITALS (10 sets, daily range): BP systolic 102–131; BP diastolic 58–81; TEMP 98.5–100.5
[2020-12-17 05:38] LABS: PLATELET COUNT 213 K/uL (152-353)
[2020-12-17 05:50] LABS: POTASSIUM 4.2 mmol/L (3.6-5.2)
[2020-12-18] VITALS (14 sets, daily range): BP systolic 102–144; BP diastolic 56–96; TEMP 98.3–99.6
[2020-12-18 09:25] LABS: PLATELET COUNT 259 K/uL (152-353)
[2020-12-18 09:26] LABS: POTASSIUM 4.4 mmol/L (3.6-5.2)
[2020-12-19 00:08] VITALS: BP 125/76; TEMP 100.5; TEMP 99.5
[2020-12-19 04:03] VITALS: BP 100/57; TEMP 98.9
[2020-12-19 05:06] LABS: PLATELET COUNT 194 K/uL (152-353)
[2020-12-19 05:08] LABS: POTASSIUM 4.7 mmol/L (3.6-5.2)
[2020-12-19 08:09] VITALS: BP 113/66; TEMP 98.9
[2020-12-19 12:29] VITALS: BP 107/53; TEMP 99.4
[2020-12-19 16:26] VITALS: BP 128/74; TEMP 99.8
[2020-12-19 20:00] VITALS: BP 112/66; TEMP 100.2
[2020-12-20] VITALS (7 sets, daily range): BP systolic 95–114; BP diastolic 55–72; TEMP 98.9–100.1
[2020-12-20 04:58] LABS: PLATELET COUNT 246 K/uL (152-353)
[2020-12-21 04:24] VITALS: BP 100/65; TEMP 98.9
[2020-12-21 05:44] LABS: PLATELET COUNT 273 K/uL (152-353)
[2020-12-21 05:53] LABS: POTASSIUM 3.7 mmol/L (3.6-5.2)
[2020-12-21 08:00] VITALS: BP 100/61; TEMP 99.8
[2020-12-21 12:00] VITALS: BP 102/56; TEMP 98.5
[2020-12-21 16:00] VITALS: BP 111/74; TEMP 98.5
[2020-12-21 20:20] VITALS: BP 111/70; TEMP 99.5
[2020-12-22] VITALS (7 sets, daily range): BP systolic 89–109; BP diastolic 50–72; TEMP 98.2–99.4
[2020-12-22 05:38] LABS: PLATELET COUNT 299 K/uL (152-353)
[2020-12-22 05:42] LABS: POTASSIUM 3.5 mmol/L (3.6-5.2)
[2020-12-23 04:00] VITALS: BP 100/51; TEMP 98.5
[2020-12-23 05:19] LABS: POTASSIUM 3.7 mmol/L (3.6-5.2)
[2020-12-23 05:27] LABS: PLATELET COUNT 264 K/uL (152-353)
[2020-12-23 08:00] VITALS: BP 110/72; TEMP 98.9
[2020-12-23 12:00] VITALS: BP 99/52; TEMP 101.3
[2020-12-23 16:00] VITALS: BP 93/49; TEMP 98.8
[2020-12-23 20:00] VITALS: BP 102/59; TEMP 99.9
[2020-12-24] VITALS (7 sets, daily range): BP systolic 94–110; BP diastolic 53–70; TEMP 98–99.5
[2020-12-24 04:37] LABS: POTASSIUM 3.1 mmol/L (3.6-5.2)
[2020-12-24 04:46] LABS: PLATELET COUNT 342 K/uL (152-353)
[2020-12-25 04:14] VITALS: BP 106/65; TEMP 98.3
[2020-12-25 04:58] LABS: PLATELET COUNT 342 K/uL (152-353)
[2020-12-25 05:08] LABS: POTASSIUM 3.5 mmol/L (3.6-5.2)
[2020-12-25 08:00] VITALS: BP 100/61; TEMP 98.9
[2020-12-25 12:00] VITALS: BP 97/54; TEMP 99.6
[2020-12-25 16:00] VITALS: BP 107/63; TEMP 99.3
[2020-12-25 20:00] VITALS: BP 108/69; TEMP 99
[2020-12-26] VITALS: BP 103/65; TEMP 98.6
[2020-12-26 04:17] VITALS: BP 98/68; TEMP 98.7
[2020-12-26 08:00] VITALS: BP 92/50; TEMP 98.7
[2020-12-26 12:00] VITALS: BP 94/59; TEMP 98.7
[2020-12-26 16:00] VITALS: BP 110/76; TEMP 98.8
[2020-12-26 20:00] VITALS: BP 116/73; TEMP 99.2
[2020-12-27] VITALS: BP 111/75; TEMP 99.1
[2020-12-27 04:00] VITALS: BP 112/73; TEMP 99.1
[2020-12-27 05:47] LABS: POTASSIUM 4.2 mmol/L (3.6-5.2)
[2020-12-27 05:52] LABS: PLATELET COUNT 450 K/uL (152-353)
[2020-12-27 08:00] VITALS: BP 102/62; TEMP 98.6
[2020-12-27 12:00] VITALS: BP 112/59; TEMP 98.7
[2020-12-27 16:00] VITALS: BP 120/81; TEMP 98.6
[2020-12-27 20:00] VITALS: BP 100/67; TEMP 98.7
[2020-12-28 00:26] VITALS: BP 105/70; TEMP 97.7
[2020-12-28 04:00] VITALS: BP 103/64; TEMP 98.8
[2020-12-28 05:27] LABS: PLATELET COUNT 474 K/uL (152-353)
[2020-12-28 08:00] VITALS: BP 105/70; TEMP 98.1
== END 2020-12-28 16:35 | disposition home or self-care (01) | DRG 812 ==
LOC: ED 11:31 → MED/SURG 14:00
PROVIDERS: Emergency Medicine; Internal Medicine Endocrinology, Diabetes & Metabolism; ADMIT Internal Medicine; ATTEND Internal Medicine
PROC: 30233N1 Transfusion of Nonautologous Red Blood Cells into Peripheral Vein, Percutaneous Approach (ICD-10-PCS; principal; 2020-12-26)
DX: D57.818 Other sickle-cell disorders with crisis with other specified complication (principal); N30.00 Acute cystitis without hematuria; B95.2 Enterococcus as the cause of diseases classified elsewhere; R00.0 Tachycardia, unspecified; E87.6 Hypokalemia
CPT/HCPCS: 36415; 36416; 36430; 36600; 80048; 80202; 80307; 81000; 82805; 84484; 85007; 85027; 86850; 86870; 86900; 86901; 86902; 86922; 87077; 87086; 87088; 87185; 87186; 87635; 93005; 94640; 94664; 94760; 96365; 96366; 96367; 96374; 96375; 99284; J0456; J1170; J1200; J1642; J1650; J1940; J2310; J2550; J3370; P9016; U0003

== ENCOUNTER 2021-01-10 23:02 | Emergency (ER) | payer OTHER ==
[~2021-01-10] VITALS: Ht 170.2 cm; Wt 51.3 kg
[~2021-01-10 23:02] MED LIST changes: +ONDA4TAB3 PO
[2021-01-11 01:10] VITALS: BP 122/82; TEMP 98.3
== END 2021-01-11 01:10 | disposition home or self-care (01) ==
LOC: ED 23:02
DX: D57.819 Other sickle-cell disorders with crisis, unspecified (principal); M79.604 Pain in right leg
CPT/HCPCS: 96372; 99283; J1170; J1200; J2550

== ENCOUNTER 2021-01-11 18:19 | Emergency (ER) | payer OTHER ==
[~2021-01-11] VITALS: Ht 170.2 cm; Wt 51.3 kg
[2021-01-11 20:02] LABS: PLATELET COUNT 430 K/uL (152-353)
[2021-01-11 20:09] LABS: POTASSIUM 4.5 mmol/L (3.6-5.2)
[2021-01-11 23:08] VITALS: BP 102/68; TEMP 98.4
== END 2021-01-11 23:08 | disposition home or self-care (01) ==
LOC: ED 18:19
PROVIDERS: Emergency Medicine
DX: D57.819 Other sickle-cell disorders with crisis, unspecified (principal)
CPT/HCPCS: 36415; 80053; 85027; 85044; 96360; 96361; 96372; 96375; 96376; 99284; J1170; J1200; J1885; J2550

== ENCOUNTER 2021-01-14 06:45 | Inpatient (IN) | payer OTHER ==
[2021-01-14] VITALS (9 sets, daily range): BP systolic 104–116; BP diastolic 67–81; TEMP 98.1–98.5; Ht 170.2 cm; Wt 54.0 kg
[~2021-01-14] VITALS: Ht 170.2 cm; Wt 54.0 kg
[2021-01-14 09:19] LABS: PLATELET COUNT 366 K/uL (152-353)
[2021-01-14 09:41] LABS: POTASSIUM 3.6 mmol/L (3.6-5.2)
[2021-01-15] VITALS: BP 107/62; TEMP 98.1
[2021-01-15 04:00] VITALS: BP 94/59; TEMP 98
[2021-01-15 08:00] VITALS: BP 102/64; TEMP 98.1
[2021-01-15 12:00] VITALS: BP 119/73; TEMP 98.4
[2021-01-15 15:30] LABS: PLATELET COUNT 338 K/uL (152-353)
[2021-01-15 15:33] LABS: POTASSIUM 3.7 mmol/L (3.6-5.2)
[2021-01-15 16:00] VITALS: BP 107/67; TEMP 99.1
[2021-01-15 20:00] VITALS: BP 100/61; TEMP 98.8
[2021-01-16] VITALS (10 sets, daily range): BP systolic 91–112; BP diastolic 56–74; TEMP 98.2–98.9
[2021-01-16 09:13] LABS: PLATELET COUNT 330 K/uL (152-353)
[2021-01-16 09:14] LABS: POTASSIUM 3.5 mmol/L (3.6-5.2)
[2021-01-16] MEDS ORDERED: [UNRECOGNIZED DRUG - OTHER] IV (19:59)
[2021-01-17] VITALS: BP 110/71; TEMP 98.4
[2021-01-17 04:00] VITALS: BP 108/69; TEMP 98.8
[2021-01-17 05:47] LABS: PLATELET COUNT 299 K/uL (152-353)
[2021-01-17 06:00] LABS: POTASSIUM 3.6 mmol/L (3.6-5.2)
[2021-01-17 08:00] VITALS: BP 114/75; TEMP 98
[2021-01-17 12:00] VITALS: BP 114/75; TEMP 98
[2021-01-17 16:00] VITALS: BP 116/86; TEMP 100
[2021-01-17 20:00] VITALS: BP 113/69; TEMP 99.9
[2021-01-18] VITALS (7 sets, daily range): BP systolic 102–107; BP diastolic 64–75; TEMP 98–101.3
[2021-01-18 06:01] LABS: POTASSIUM 3.6 mmol/L (3.6-5.2)
[2021-01-18 06:22] LABS: PLATELET COUNT 254 K/uL (152-353)
[2021-01-19 03:53] VITALS: BP 115/72; TEMP 98.5
[2021-01-19 05:42] LABS: PLATELET COUNT 252 K/uL (152-353)
[2021-01-19 05:53] LABS: POTASSIUM 3.4 mmol/L (3.6-5.2)
[2021-01-19 08:00] VITALS: BP 102/70; TEMP 98.6
[2021-01-19 12:00] VITALS: BP 107/71; TEMP 99.1
[2021-01-19 16:00] VITALS: BP 113/78; TEMP 99.1
[2021-01-19 20:00] VITALS: BP 111/78; TEMP 97.7
[2021-01-20] VITALS: BP 110/76; TEMP 98.5
[2021-01-20 04:00] VITALS: BP 104/70; TEMP 97.9
[2021-01-20 05:07] LABS: PLATELET COUNT 237 K/uL (152-353)
[2021-01-20 05:20] LABS: POTASSIUM 3.5 mmol/L (3.6-5.2)
[2021-01-20 08:00] VITALS: BP 99/66; TEMP 98.6
== END 2021-01-20 17:25 | disposition home or self-care (01) | DRG 811 ==
LOC: ED 06:45 → MED/SURG 15:07 → UNDODEPER 16:39 → MED/SURG 01-20 17:25
PROVIDERS: Emergency Medicine Emergency Medical Services; Internal Medicine Endocrinology, Diabetes & Metabolism; ADMIT Internal Medicine; ATTEND Internal Medicine
PROC: 30233N1 Transfusion of Nonautologous Red Blood Cells into Peripheral Vein, Percutaneous Approach (ICD-10-PCS; principal; 2021-01-16)
DX: D57.818 Other sickle-cell disorders with crisis with other specified complication (principal); I50.21 Acute systolic (congestive) heart failure; R00.0 Tachycardia, unspecified
CPT/HCPCS: 36415; 80048; 80053; 85007; 85014; 85018; 85027; 85044; 86850; 86870; 86900; 86901; 86902; 86905; 86922; 93005; 96360; 96361; 96375; 96376; 99284; J1170; J1200; J1642; J1940; J2550; J3490; P9016

== ENCOUNTER 2021-02-08 13:16 | Emergency (ER) | payer OTHER ==
[~2021-02-08] VITALS: Ht 170.2 cm; Wt 50.8 kg
[~2021-02-08 13:16] MED LIST changes: +[UNRECOGNIZED DRUG - OTHER] IV
[2021-02-08 13:30] VITALS: TEMP 99
[2021-02-08 16:21] LABS: PLATELET COUNT 393 K/uL (152-353)
[2021-02-08 16:28] LABS: POTASSIUM 3.8 mmol/L (3.6-5.2)
[2021-02-08 16:39] LABS: PARTIAL THROMBOPLASTIN TIME 38.3 SECONDS (24.5-33.6)
[2021-02-08 19:30] VITALS: BP 103/60
== END 2021-02-08 19:30 | disposition home or self-care (01) ==
LOC: ED 13:16
PROVIDERS: Hospitalist
DX: D57.819 Other sickle-cell disorders with crisis, unspecified (principal); G89.29 Other chronic pain; Z79.899 Other long term (current) drug therapy; Z51.81 Encounter for therapeutic drug level monitoring
CPT/HCPCS: 80053; 80307; 81000; 81025; 82747; 85007; 85027; 85044; 85610; 85730; 96372; 96374; 96375; 99284; J1200; J1885; J2405

== ENCOUNTER 2021-02-12 10:57 | Emergency (ER) | payer OTHER ==
[~2021-02-12] VITALS: Ht 170.2 cm; Wt 49.9 kg
[2021-02-12 11:49] LABS: PLATELET COUNT 404 K/uL (152-353)
[2021-02-12 11:51] LABS: POTASSIUM 3.9 mmol/L (3.6-5.2)
[2021-02-12 14:06] VITALS: BP 98/61; TEMP 98.8
== END 2021-02-12 14:08 | disposition home or self-care (01) ==
LOC: ED 10:57
PROVIDERS: Family Medicine
DX: D57.00 Hb-SS disease with crisis, unspecified (principal); M79.18 Myalgia, other site
CPT/HCPCS: 80053; 82550; 84484; 85027; 93005; 96360; 96372; 96375; 99284; J1200; J1642; J1885; J2175; J2550

== ENCOUNTER 2021-02-14 15:21 | Observation (INO) | payer OTHER ==
[~2021-02-14] VITALS: Ht 170.2 cm; Wt 48.5 kg
[2021-02-14 15:30] VITALS: BP 96/54; TEMP 99.2
[2021-02-14 16:53] LABS: PLATELET COUNT 395 K/uL (152-353)
[2021-02-14 16:55] LABS: POTASSIUM 3.6 mmol/L (3.6-5.2)
[2021-02-14 17:00] VITALS: BP 115/87
[2021-02-14 18:00] VITALS: BP 88/46
[2021-02-14 23:30] VITALS: BP 93/48; TEMP 99; Ht 170.2 cm; Wt 48.5 kg
[2021-02-15 00:10] VITALS: BP 93/48; TEMP 99
[2021-02-15 04:03] VITALS: BP 97/42; TEMP 98.4
[2021-02-15 05:45] LABS: PLATELET COUNT 379 K/uL (152-353)
[2021-02-15 05:54] LABS: POTASSIUM 3.7 mmol/L (3.6-5.2)
[2021-02-15 08:00] VITALS: BP 91/53; TEMP 98.5
[2021-02-15 12:00] VITALS: BP 100/56; TEMP 99.1
[2021-02-15 16:00] VITALS: BP 108/61; TEMP 98.8
== END 2021-02-15 18:10 | disposition home or self-care (01) ==
LOC: ED 15:21 → MED/SURG 21:30
PROVIDERS: ADMIT Emergency Medicine Emergency Medical Services; ATTEND Internal Medicine
DX: R10.9 Unspecified abdominal pain (principal); D57.80 Other sickle-cell disorders without crisis; I50.9 Heart failure, unspecified
CPT/HCPCS: 36415; 80048; 80053; 80307; 81000; 81025; 83880; 84484; 85027; 85044; 87040; 87077; 87086; 87088; 87186; 87635; 93005; 96360; 96361; 96365; 96367; 96374; 96375; 99220; 99284; A9576; G0378; J1170; J1200; J1642; J2405; J2543; U0003

== ENCOUNTER 2021-02-20 19:40 | Emergency (ER) | payer OTHER ==
[~2021-02-20] VITALS: Ht 170.2 cm; Wt 49.9 kg
[2021-02-20 21:40] VITALS: BP 104/70; TEMP 98.1
== END 2021-02-20 21:45 | disposition home or self-care (01) ==
LOC: ED 19:40
DX: N39.0 Urinary tract infection, site not specified (principal); D57.1 Sickle-cell disease without crisis
CPT/HCPCS: 93005; 96372; 99283; J1170; J1200

== ENCOUNTER 2021-02-23 10:16 | Emergency (ER) | payer OTHER ==
[~2021-02-23] VITALS: Ht 170.2 cm; Wt 49.9 kg
[2021-02-23 11:15] LABS: PLATELET COUNT 376 K/uL (152-353)
[2021-02-23 11:17] LABS: POTASSIUM 4.2 mmol/L (3.6-5.2)
[2021-02-23 12:48] VITALS: BP 115/63; TEMP 98.9
== END 2021-02-23 12:49 | disposition home or self-care (01) ==
LOC: ED 10:16
PROVIDERS: Emergency Medicine Emergency Medical Services
DX: G89.4 Chronic pain syndrome (principal)
CPT/HCPCS: 80053; 80307; 81000; 81025; 85008; 85027; 85044; 96372; 99283; J1170; J1200

== ENCOUNTER 2021-02-26 19:19 | Emergency (ER) | payer OTHER ==
[~2021-02-26] VITALS: Ht 170.2 cm; Wt 49.9 kg
[2021-02-26 20:18] VITALS: BP 118/71; TEMP 98.9
== END 2021-02-26 20:18 | disposition home or self-care (01) ==
LOC: ED 19:19
DX: D57.00 Hb-SS disease with crisis, unspecified (principal)
CPT/HCPCS: 96372; 99283; J1170; J1200; J2550

== ENCOUNTER 2021-03-07 15:43 | Observation (INO) | payer OTHER ==
[2021-03-07] VITALS (7 sets, daily range): BP systolic 92–100; BP diastolic 40–61; TEMP 98.5–99.3; Ht 170.2 cm; Wt 52.2 kg
[~2021-03-07] VITALS: Ht 170.2 cm; Wt 52.2 kg
[2021-03-07 16:50] LABS: PLATELET COUNT 353 K/uL (152-353)
[2021-03-07 16:52] LABS: POTASSIUM 4.7 mmol/L (3.6-5.2)
[2021-03-08] VITALS (14 sets, daily range): BP systolic 86–109; BP diastolic 45–68; TEMP 97.9–99.2
[2021-03-08] MEDS ORDERED: DIGOXIN125 MCG PO (09:31)
[2021-03-08] MEDS ORDERED: HYDR10TA47 PO (09:33)
[2021-03-08 13:08] LABS: PLATELET COUNT 299 K/uL (152-353)
[2021-03-08 13:24] LABS: POTASSIUM 4.2 mmol/L (3.6-5.2)
[2021-03-09 00:02] VITALS: BP 101/58; TEMP 99.3
[2021-03-09 04:00] VITALS: BP 103/65; TEMP 98
[2021-03-09 05:41] LABS: PLATELET COUNT 293 K/uL (152-353)
[2021-03-09 05:56] LABS: POTASSIUM 4.4 mmol/L (3.6-5.2)
[2021-03-09 08:00] VITALS: BP 102/59; TEMP 98.9
[2021-03-09 12:00] VITALS: BP 105/62; TEMP 99
[2021-03-09 16:00] VITALS: BP 109/65; TEMP 99.1
[2021-03-09 20:00] VITALS: BP 90/40; BP 90/49; TEMP 98.6
[2021-03-10 00:05] VITALS: BP 121/79; TEMP 99.1
[2021-03-10 04:00] VITALS: BP 100/53; TEMP 98.6
[2021-03-10 05:02] LABS: PLATELET COUNT 250 K/uL (152-353)
[2021-03-10 08:00] VITALS: BP 95/52; TEMP 98.3
[2021-03-10 12:00] VITALS: BP 94/46; TEMP 98.9
[2021-03-10 16:00] VITALS: BP 110/64; TEMP 98.7
== END 2021-03-10 20:15 | disposition home or self-care (01) ==
LOC: ED 15:43 → MED/SURG 17:50
PROVIDERS: Emergency Medicine; ADMIT Internal Medicine Endocrinology, Diabetes & Metabolism; ATTEND Internal Medicine Endocrinology, Diabetes & Metabolism
PROC: 30233N1 Transfusion of Nonautologous Red Blood Cells into Peripheral Vein, Percutaneous Approach (ICD-10-PCS; principal; 2021-03-07)
PROC: 30233N1 Transfusion of Nonautologous Red Blood Cells into Peripheral Vein, Percutaneous Approach (ICD-10-PCS; 2021-03-08)
DX: D57.818 Other sickle-cell disorders with crisis with other specified complication (principal); G89.4 Chronic pain syndrome; I50.9 Heart failure, unspecified; I48.0 Paroxysmal atrial fibrillation; Z79.01 Long term (current) use of anticoagulants
CPT/HCPCS: 36415; 36430; 36591; 80048; 85007; 85027; 86850; 86900; 86901; 86922; 87635; 96365; 96366; 96367; 96372; 96374; 96375; 99220; 99284; G0378; J1170; J1200; J1642; J2405; J2550; P9016; U0003

== ENCOUNTER 2021-04-01 09:17 | Emergency (ER) | payer OTHER ==
[~2021-04-01] VITALS: Ht 170.2 cm; Wt 52.2 kg
[~2021-04-01 09:17] MED LIST changes: +DIGOXIN125 MCG PO
[2021-04-01 09:55] VITALS: TEMP 97.4
[2021-04-01 10:24] LABS: PLATELET COUNT 367 K/uL (152-353)
[2021-04-01 10:33] LABS: POTASSIUM 4.1 mmol/L (3.6-5.2)
[2021-04-01 11:20] VITALS: BP 99/57
== END 2021-04-01 11:20 | disposition home or self-care (01) ==
LOC: ED 09:17
PROVIDERS: Hospitalist
DX: R00.2 Palpitations (principal); R07.89 Other chest pain; D63.8 Anemia in other chronic diseases classified elsewhere; D57.1 Sickle-cell disease without crisis
CPT/HCPCS: 80053; 84484; 85027; 85044; 93005; 99283

== ENCOUNTER 2021-04-28 21:45 | Emergency (ER) | payer OTHER ==
[~2021-04-28] VITALS: Ht 170.2 cm; Wt 52.2 kg
[2021-04-28 22:36] LABS: POTASSIUM 4.2 mmol/L (3.6-5.2)
[2021-04-28 22:43] LABS: PLATELET COUNT 313 K/uL (152-353)
[2021-04-29 00:15] VITALS: BP 97/61; TEMP 98.9
== END 2021-04-29 00:15 | disposition home or self-care (01) ==
LOC: ED 21:45
PROVIDERS: Hospitalist
DX: R19.7 Diarrhea, unspecified (principal); G89.29 Other chronic pain; D57.1 Sickle-cell disease without crisis
CPT/HCPCS: 80053; 83690; 85008; 85027; 96360; 96365; 96375; 99284; J1642; J1885; J1956; J2405; J3490

== ENCOUNTER 2021-05-15 14:01 | Emergency (ER) | payer OTHER ==
[~2021-05-15] VITALS: Ht 170.2 cm; Wt 52.2 kg
[2021-05-15 14:13] VITALS: TEMP 98.2
[2021-05-15 14:58] LABS: POTASSIUM 4.7 mmol/L (3.6-5.2)
[2021-05-15 14:59] LABS: PLATELET COUNT 221 K/uL (152-353)
[2021-05-15 17:22] VITALS: BP 102/54
== END 2021-05-15 17:24 | disposition home or self-care (01) ==
LOC: ED 14:01
PROVIDERS: Emergency Medicine
DX: D57.819 Other sickle-cell disorders with crisis, unspecified (principal); R07.89 Other chest pain
CPT/HCPCS: 36415; 80053; 84484; 85007; 85027; 85610; 93005; 96374; 96375; 96376; 99284; J1170; J1200; J1642; J2270; J2405

== ENCOUNTER 2021-05-29 21:10 | Emergency (ER) | payer OTHER ==
[~2021-05-29] VITALS: Ht 170.2 cm; Wt 52.2 kg
[2021-05-29 22:26] LABS: PLATELET COUNT 244 K/uL (152-353)
[2021-05-29 22:31] LABS: POTASSIUM 4.5 mmol/L (3.6-5.2)
[2021-05-30 09:47] VITALS: BP 108/57; TEMP 98
== END 2021-05-30 09:56 | disposition short-term general hospital (02) ==
LOC: ED 21:10
PROVIDERS: Emergency Medicine
DX: N39.0 Urinary tract infection, site not specified (principal); I50.9 Heart failure, unspecified; K76.89 Other specified diseases of liver; R17 Unspecified jaundice; D57.819 Other sickle-cell disorders with crisis, unspecified; Z11.52 Encounter for screening for COVID-19
CPT/HCPCS: 36415; 36600; 80053; 80074; 81000; 82248; 82805; 83605; 83880; 84484; 85027; 85044; 85610; 87040; 87077; 87086; 87088; 87185; 87186; 87205; 87635; 93005; 96374; 96375; 96376; 99284; J1170; J1200; J1940; J2185; J2405; U0003

== ENCOUNTER 2021-07-15 12:13 | Emergency (ER) | payer OTHER ==
[~2021-07-15] VITALS: Ht 170.2 cm; Wt 52.2 kg
[2021-07-15 12:15] VITALS: BP 100/78; TEMP 99.5
[2021-07-15 12:46] LABS: PLATELET COUNT 384 K/uL (152-353)
[2021-07-15 13:02] LABS: POTASSIUM 3.7 mmol/L (3.6-5.2)
== END 2021-07-15 13:45 | disposition still patient (30) ==
LOC: ED 12:13
PROVIDERS: Hospitalist
DX: G89.4 Chronic pain syndrome (principal); D57.1 Sickle-cell disease without crisis; R00.2 Palpitations; Z79.899 Other long term (current) drug therapy
CPT/HCPCS: 80053; 80162; 80320; 84484; 85027; 85044; 93005; 96372; 99283; J1885; J2405

== ENCOUNTER 2021-08-04 23:59 | Emergency (ER) | payer OTHER ==
[~2021-08-04] VITALS: Ht 170.2 cm; Wt 49.9 kg
[2021-08-05 00:56] LABS: POTASSIUM 4.1 mmol/L (3.6-5.2)
[2021-08-05 01:00] LABS: PLATELET COUNT 217 K/uL (152-353)
[2021-08-05 01:07] LABS: PARTIAL THROMBOPLASTIN TIME 27.4 SECONDS (24.5-33.6)
[2021-08-05 01:50] VITALS: BP 107/70; TEMP 98.1
== END 2021-08-05 01:55 | disposition home or self-care (01) ==
LOC: ED 23:59
PROVIDERS: Hospitalist
DX: D57.09 Hb-SS disease with crisis with other specified complication (principal); N39.0 Urinary tract infection, site not specified; I50.9 Heart failure, unspecified; Z79.01 Long term (current) use of anticoagulants; Z51.81 Encounter for therapeutic drug level monitoring
CPT/HCPCS: 36415; 80053; 80162; 80307; 81000; 81025; 85008; 85027; 85044; 85610; 85730; 87077; 87086; 87088; 87186; 96372; 99283; J1885; J2405

== ENCOUNTER 2021-10-09 17:31 | Emergency (ER) | payer OTHER ==
[~2021-10-09] VITALS: Ht 170.2 cm; Wt 49.9 kg
[2021-10-09 17:39] VITALS: TEMP 99.1
[2021-10-09 18:12] LABS: PLATELET COUNT 345 K/uL (152-353)
[2021-10-09 18:31] LABS: POTASSIUM 4.3 mmol/L (3.6-5.2)
[2021-10-09 19:30] VITALS: BP 100/52
== END 2021-10-09 19:30 | disposition home or self-care (01) ==
LOC: ED 17:31
PROVIDERS: Hospitalist
DX: D57.1 Sickle-cell disease without crisis (principal); G89.29 Other chronic pain; D63.8 Anemia in other chronic diseases classified elsewhere; Z20.822 Contact with and (suspected) exposure to COVID-19; Z79.899 Other long term (current) drug therapy; Z51.81 Encounter for therapeutic drug level monitoring
CPT/HCPCS: 80053; 80162; 80307; 81002; 81025; 85027; 85044; 85610; 85730; 87635; 96372; 99283; J1200; J1885; J2405; U0003

== ENCOUNTER 2021-10-19 06:00 | Inpatient (IN) | payer OTHER ==
[2021-10-19] VITALS (8 sets, daily range): BP systolic 90–112; BP diastolic 53–74; TEMP 98.4–101; Ht 170.2 cm; Wt 55.4 kg
[~2021-10-19] VITALS: Ht 170.2 cm; Wt 55.4 kg
[2021-10-19 06:53] LABS: POTASSIUM 4.4 mmol/L (3.6-5.2)
[2021-10-19 06:59] LABS: PLATELET COUNT 303 K/uL (152-353)
[2021-10-19] MEDS ORDERED: METO25TA2 PO (12:44)
[2021-10-19] MEDS ORDERED: HYDROMORPHONE HY4 MG PO (12:47)
[2021-10-19] MEDS ORDERED: LEVO-T25 MCG PO (12:48)
[2021-10-19] MEDS ORDERED: XTAMPZA ER18 MG PO (12:49)
[2021-10-19] MEDS ORDERED: FURO20TA67 PO (12:50)
[2021-10-19] MEDS ORDERED: DEFERASIROX PO (12:51)
[2021-10-20] VITALS (11 sets, daily range): BP systolic 90–104; BP diastolic 42–58; TEMP 97.3–101.9
[2021-10-20 05:43] LABS: POTASSIUM 4.4 mmol/L (3.6-5.2)
[2021-10-20 06:17] LABS: PLATELET COUNT 257 K/uL (152-353)
[2021-10-21] VITALS (9 sets, daily range): BP systolic 87–119; BP diastolic 43–82; TEMP 97.5–99.6
[2021-10-22] VITALS: BP 102/63; TEMP 98
[2021-10-22 04:00] VITALS: BP 93/50; TEMP 98.7
[2021-10-22 08:34] VITALS: BP 102/62; TEMP 98.6
[2021-10-22 09:28] LABS: PLATELET COUNT 234 K/uL (152-353)
[2021-10-22 09:30] LABS: POTASSIUM 4.1 mmol/L (3.6-5.2)
[2021-10-22 12:00] VITALS: BP 109/67; TEMP 98.7
[2021-10-22 16:00] VITALS: BP 101/61; TEMP 97.9
[2021-10-22 19:50] VITALS: BP 114/61; TEMP 98.5
[2021-10-23] VITALS: BP 120/77; TEMP 98.3
[2021-10-23 04:00] VITALS: BP 111/65; TEMP 98.4
[2021-10-23 04:57] LABS: PLATELET COUNT 237 K/uL (152-353)
[2021-10-23 05:13] LABS: POTASSIUM 4.3 mmol/L (3.6-5.2)
[2021-10-23 08:00] VITALS: BP 106/56; TEMP 98
[2021-10-23 12:17] VITALS: BP 105/57; TEMP 98.4
[2021-10-23] MEDS ORDERED: AMOX500T5 PO (14:42)
== END 2021-10-23 15:38 | disposition home or self-care (01) | DRG 811 ==
LOC: ED 06:00 → MED/SURG 07:30
PROVIDERS: Emergency Medicine; ADMIT Internal Medicine; ATTEND Internal Medicine
PROC: 30233N1 Transfusion of Nonautologous Red Blood Cells into Peripheral Vein, Percutaneous Approach (ICD-10-PCS; principal; 2021-10-20)
PROC: 30233N1 Transfusion of Nonautologous Red Blood Cells into Peripheral Vein, Percutaneous Approach (ICD-10-PCS; 2021-10-21)
DX: D57.818 Other sickle-cell disorders with crisis with other specified complication (principal); A41.89 Other specified sepsis; N39.0 Urinary tract infection, site not specified; E03.8 Other specified hypothyroidism; R00.0 Tachycardia, unspecified; B96.20 Unspecified Escherichia coli [E. coli] as the cause of diseases classified elsewhere; I50.9 Heart failure, unspecified
CPT/HCPCS: 36415; 80048; 80053; 81002; 81015; 82607; 83540; 84484; 85007; 85014; 85018; 85027; 85044; 86850; 86900; 86901; 86922; 87040; 87077; 87086; 87088; 87186; 87635; 93005; 94760; 96360; 96361; 96365; 96374; 96375; 96376; 99284; J0132; J1170; J1200; J1642; J1940; J2185; J2405; J3490; J7120; P9016; U0003

== ENCOUNTER 2021-11-14 12:24 | Observation (INO) | payer OTHER ==
[~2021-11-14] VITALS: Ht 170.2 cm; Wt 53.3 kg
[~2021-11-14 12:24] MED LIST changes: +DEFERASIROX PO; +FURO20TA67 PO; +HYDROMORPHONE HY4 MG PO; +LEVO-T25 MCG PO; +METO25TA2 PO; +XTAMPZA ER18 MG PO
[2021-11-14 12:43] VITALS: BP 90/55; TEMP 98.8
[2021-11-14 13:26] LABS: PLATELET COUNT 304 K/uL (152-353); POTASSIUM 4.4 mmol/L (3.6-5.2)
[2021-11-14 17:07] VITALS: BP 114/54; TEMP 98.4; Ht 170.2 cm; Wt 53.3 kg
[2021-11-14 20:00] VITALS: BP 119/55; TEMP 98.7
--- NOTE | 2021-11-14 23:49 | NUR ---
RT LYING IN BED LOOKING AT CELLPHONE. PT STATES PAIN LEVEL 7. ADMINSTERED PAIN MEDICATION PER MAY. NO S/SX OF DISTRESS NOTED CALL LIGHT WITHIN REACH.
[2021-11-15] VITALS (7 sets, daily range): BP systolic 96–130; BP diastolic 40–57; TEMP 98.7–99.3
--- NOTE | 2021-11-15 03:31 | NUR ---
PT CALLED NURSING STATION C/O OF PAIN. SHE STATES PAIN LEVEL OF 7. ADMINSISTERED PAIN MEDICATION. PT TOLERATED IT WEE. NO S/SX OF DISTRESS NOTED. CALL CHARLI WITHIN RECH.
--- NOTE | 2021-11-15 11:00 | NUR ---
DR. LEACH AT PT'S BEDSIDE. IVF INCREASED TO NS AT 100ML/HR. LABS OBTAINED VIA PORT A CATH BY ILIANA MYRICK RN.
[2021-11-15 11:27] LABS: PLATELET COUNT 278 K/uL (152-353)
[2021-11-15 11:34] LABS: POTASSIUM 4.2 mmol/L (3.6-5.2)
--- NOTE | 2021-11-15 22:37 | NUR ---
IN PT'S ROOM TO ADMINISTER PO PM MEDS. PT ACTING LATHARGIC AND TAKIN SEVERAL MINUTES TO TAKE MEDICATION. REQUESTED PAIN MEDS STATING A PL OF 7. NO S/SX OF DISRESS NOTED. CALL LIGHT WITHIN REACH.
[2021-11-16] VITALS (16 sets, daily range): BP systolic 95–114; BP diastolic 52–75; TEMP 98.1–99.3
--- NOTE | 2021-11-16 10:17 | NUR ---
PT AWAKE AND WATCHING VIDEOS ON CELLPHONE. C/O PAIN R/T DX TO BACK/LEGS. RATES PAIN A "7" ON PAIN SCALE 1-10, 10 BEING THE WORSE. ADMINISTERED PAIN MEDS,ZOFRAN AND BENADRYL ORDERED. AM MEDS ADMINISTERED ORDERED AND PT TOLERATED WELL. BLOOD TRANSFUSION COMPLETED AT 0815, VITAL SIGNS OBTAINED. NO ADVERSE REACTIONS NOTED FROM TRANSFUSION, TOLERATED WELL. BLOOD BAG R/T LAB AT 0825. CONTINUE TO MONITOR.
--- NOTE | 2021-11-16 12:36 | NUR ---
PT C/O PAIN TO LEGS/BACK R/T DX. RATES PAIN A "7" ON PAIN SCALE 1-10, 10 BEING THE WORSE. ADMINISTERED DILAUDID,BENADRYL AND PHENERGAN ORDERED. CONTINUE TO MONITOR.
--- NOTE | 2021-11-16 13:55 | NUR ---
2ND UNIT OF PRBC STARTED AT THIS TIME AT 50 ML/HR AFTER VERFICATION FROM THIS NURSE AND LISA RICO LPN AT BEDSIDE.
--- NOTE | 2021-11-16 14:10 | NUR ---
15 MINUTES POST TRANSFUSION OF PRBC PATIENT IS RESTING QUIETLY WITH EYES CLOSED AND NO ACUTE REACTION IS NOTED. PRBC INCREASED FROM 50 ML/HR TO 125 ML/HR. WILL CONTINUE TO MONITOR.
--- NOTE | 2021-11-16 14:42 | NUR ---
ASKED PT IF THERE IS ANYONE CAN BRING HER HOME MED:DEFERASIROX FROM HOME. PT STATES "I DON'T HAVE ANYONE WHO CAN BRING IT TO ME." HCP(NITHIN) D/C'D MED. BLOOD TRANSFUSION CONTINUING. NO ADVERSE REACTIONS NOTED. PT WATCHING VIDEOS ON PHONE. NAD NOTED. CONTINUE TO MONITOR.
--- NOTE | 2021-11-16 16:09 | NUR ---
PT LAYING IN SUPINE POSITION. WATCHING TV AND CELL PHONE. DENIES ANY PAIN. BLOOD TRANSFUSION CONTINUING WITH NO ADVERSE REACTIONS NOTED. CONTINUE TO MONITOR.
--- NOTE | 2021-11-16 16:40 | NUR ---
PT C/O PAIN IN LEGS/BACK R/T DX. ADMINISTERED DILAUDID,PHENERGAN AND BENADRYL ORDERED. PT RATES PAIN "6" ON PAIN SCALE 1-10, 10 BEING THE WORSE. BLOOD TRANSFUSION COMPLETED AT 1630. NO ADVERSE REACTIONS NOTED. NO VOICED COMPLAINTS R/T INFUSION. PT TOLERATED WELL. BLOOD BAG R/T TO LAB 1645. NS INFUSING ORDERED RESTARTED. CONTINUE TO MONITOR.
--- NOTE | 2021-11-16 18:18 | NUR ---
PT IN HIGH FOWLERS. VITAL SIGNS TAKEN AT 1744 ONE HOURS AFTER COMPLETE BLOOD TRANSFUSION. TEMP:99 RESP:18 PULSE:76BPM HR:110/67 O2:96% WILL CONTINUE TO MONITOR.
--- NOTE | 2021-11-16 20:24 | NUR ---
PT RECEIVED PRBC INFUSION TODAY. IT WAS COMPLETED AT 16:30. LAB AT BEDSIDE TO DRAW ORDERED LAB.
[2021-11-16 20:40] LABS: PLATELET COUNT 278 K/uL (152-353)
--- NOTE | 2021-11-16 20:40 | NUR ---
PT AWAKE LAYING IN BED WITH NO ACUTE DISTRESS NOTED, STATES SHE JUST CAN NOT GET COMFORTABLE AND C/O CONSTANT PAIN TO HER "BACK AND LEGS" THAT SHE RATES A "7" ON SCALE. GAVE BENADRYL 25MG IVP PRN TO PREVENT ITCHING ONCE PRN PAIN MEDICATION IS GIVEN. ALSO GAVE PHENERGAN 12.5MG IVP PRN, THEN GAVE DILAUDID 1.5MG SLOW IVP PRN FOR HER PAIN MENTIONED ABOVE. WILL MONITOR CLOSELY, RAILS UP, BED IN LOW POSITION, CALL LIGHT IN REACH.
--- NOTE | 2021-11-16 21:10 | NUR ---
PT AWAKE WATCHING TV SITTING UP IN HIGH ROMAN'S POSITION IN BED WITH NO S/S OF PAIN OR DISTRESS NOTED, PORT INTACT TO L UPPER CHEST WITH FLUID ONGOING, RESP RATE NONLABORED. NO S/S OF REACTIONS NOTED TO PRN MEDICATIONS, PT STATES HER PAIN IS TOLERABLE AND HAS DECREASED TO A "5" SINCE MEDICATIONS GIVEN PRN. WILL MONITOR CLOSELY, RAILS UP, BED IN LOW POSITION, CALL LIGHT IN REACH, ENCOURAGED TO CALL NEEDED.
[2021-11-17 00:02] VITALS: BP 104/63; TEMP 98.7
--- NOTE | 2021-11-17 00:32 | NUR ---
PT CALL LIGHT ANSWERED, PT FOUND AWAKE AND ORIENTED SITTING UP IN BED WITH NO ACUTE DISTRESS NOTED, RESP RATE NONLABORED, PORT INTACT TO L UPPER CHEST WITH NS ONGOING. C/O CONSTANT "ACHY" PAIN TO HER BACK AND LEGS THAT SHE RATES AN "8" ON SCALE. GAVE BENADRYL 25MG IVP PRN, PHENERGAN 12.5MG IVP PRN, THEN GAVE DILAUDID 1.5MG IVP PRN. WILL MONITOR CLOSELY, RAILS UP, BED IN LOW POSITION, CALL LIGHT IN REACH, ENCOURAGED TO CALL NEEDED PT ACKNOWLEDGES UNDERSTANDING.
--- NOTE | 2021-11-17 00:55 | NUR ---
PT AWAKE WATCHING TV WITH NO S/S OF PAIN OR DISTRESS NOTED, RESP RATE NONLABORED, PORT INTACT TO L UPPER CHEST WITH NS INFUSING, DENIES ANY NEEDS AT THIS TIME, STATES PAIN MEDICATIONS HAS DECREASED HER PAIN "A LITTLE", NO REACTIONS NOTED TO PRN MEDICATIONS NO N/V NOTED. WILL MONITOR, RAILS UP, BED IN LOW POSITION, CALL LIGHT IN REACH.
[2021-11-17 04:00] VITALS: BP 111/73; TEMP 98.6
[2021-11-17 05:33] LABS: PLATELET COUNT 268 K/uL (152-353)
[2021-11-17 05:35] LABS: POTASSIUM 4.1 mmol/L (3.6-5.2)
--- NOTE | 2021-11-17 06:36 | NUR ---
PT FOUND RESTING IN BED WITH EYES CLOSED, NO S/S OF PAIN OR DISTRESS NOTED, RESP RATE NONLABORED, PORT INTACT TO L UPPER CHEST WITH NS INFUSING, AROUSES BRIEFLY GAVE 0700 MEDICATION PO WITH NO PROBLEMS, DENIES ANY NEEDS, RAILS UP, BED IN LOW POSITION, CALL LIGHT IN REACH.
[2021-11-17 08:00] VITALS: BP 100/49; TEMP 98.4
--- NOTE | 2021-11-17 09:07 | NUR ---
08:46 - PATIENT WAS GIVEN HYDROMORPHONE 15MG/0.75ML FOR GENERAIZED PAIN AND BODY ACHES CURRENTLY RATING AT A 7 OUT OF 10. PATIENT WAS ALSO GIVEN PHENERGAN 0.5ML TO PREVENT THE ONSET OF NAUSEA. PATIENT WAS ALSO GIVEN BENADRYL 0.5ML FOR DECREASE THE SIDE OF OF ITCHING.
--- NOTE | 2021-11-17 09:33 | NUR ---
PATIENT NOW CURRENTLY RATES PAIN AT A 5 OUT OF 10. WILL CONTINUE TO MONITOR.
[2021-11-17 12:00] VITALS: BP 139/80; TEMP 98.6
--- NOTE | 2021-11-17 12:08 | NUR ---
ADMINSTERED PATIENT'S METROPROL B/P MED LATE TO DUE LOW B/P THIS AM OF 100/49. RECHECKED PATIENT'S B/P AT LUNCH TIME AT 139/80. GAVE MEDICATION, WILL CONTINUE TO MONITOR. PATIENT CURRENTLY ASKING FOR PAIN MEDICATIONS AT THIS TIME. EDUCATED PATIENT IT IS TOO EARLY TO GIVE NOW. PATIENT VERBALIZED UNDERSTANDING.
--- NOTE | 2021-11-17 13:11 | NUR ---
AT 12:54, PATIENT REQUESTED PAIN MED FOR BACK PAIN AND PAIN IN LEG. RATING AT A 7 OUT OF 10. PATIENT WAS GIVEN HYDROMORPHONE 0.75ML IV PUSH, PHENERGAN 0.5ML, AND 0.5ML BENADRYL. WILL REASSESS PATIENT'S PAIN LEVEL AND CONTINUE TO MONITOR.
--- NOTE | 2021-11-17 13:43 | NUR ---
PATIENT CURRENTLY RATES PAIN AT A 5 OUT OF 10. WILL CONTINUE TO MONITOR AND REASSESS.
--- NOTE | 2021-11-17 15:11 | NUR ---
PATIENT CURRENTLY SLEEPING. NOTED NO S/S OF DISTRESS OR PAIN. PATIENT'S VITALS ARE STABLE. PATIENT ABLE TO MAKE ALL NEEDS KNOWN. IV SITE STLL INTACT. CALL LIGHT WITHIN REACH, BED LOCKED IN LOWEST POSITION. WILL CONTINUE TO MONITOR.
[2021-11-17 16:00] VITALS: BP 109/73; TEMP 99.2
--- NOTE | 2021-11-17 17:11 | NUR ---
AT 17:01 PATIENT WAS GIVEN PAIN MEDS FOR CONTINUED PAIN IN BACK AND LEGS. RATES AT A 8 OUT 10. DESCRIBES A CONSTANT ACHING PAIN. HYDROMORPHONE 0.75ML GIVEN, BENADRYL 0.5ML GIVEN, AND PHENERGAN 0.5ML ALL MEDS GIVEN IVP. PATIENT TOLERATED WELL. PORT SITE TO LEFT WALL CLEAN, DRY, AND INTACT. WILL REASSESS AND MONITOR.
--- NOTE | 2021-11-17 17:45 | NUR ---
PATIENT NOW RATES PAIN AT A 4 OUT OF 10. WILL CONTINUE TO MONITOR.
[2021-11-17 20:00] VITALS: BP 133/72; TEMP 98.4
--- NOTE | 2021-11-17 21:00 | NUR ---
PT IS A 36 YEAR FEMALE ADMITTED TO MED SURG FLOOR FOR SICKLE CELL CRISIS. PT IS ALERT AND MOBILE. PT HAS HISTORY OF BACK PAIN AND LEG PAIN. PT IS RECEIVING IVF'S OF NS INFUSING AT 75 ML/HR. PT DOES AMBULATE TO BE TO VOID. PT ABLE TO CARRY OUT ADL'S WITH MINIMAL ASSISTANCE. PT DRINKING PO FLUIDS AND TOLERATING WITHOUT N/V. PT REQUIRES PAIN MEDICATION/ANTIEMETIC/ITCH RELIEF MEDS EVERY 4 HOURS.
--- NOTE | 2021-11-17 21:01 | NUR ---
PT REQUESTED MEDICATIONS. COMPLAINTS OF LEG AND BACK PAIN. DILAUDID 1.5 MG IVSP/ BENADRYL 25 MG IVSP/PHENERGAN 12.5 MG IVSP WERE GIVEN ORDERED.
[2021-11-18] VITALS: BP 135/78; TEMP 99
--- NOTE | 2021-11-18 01:00 | NUR ---
PT REQUESTED PAIN MEDICATION. COMPLAINTS OF BACK AND LEG PAIN. PAIN SCALE OF 10. MEDICATED ORDERED.
--- NOTE | 2021-11-18 01:30 | NUR ---
PT RATES PAIN LEVEL 2 ON SCALE OF 1 TO 10.
[2021-11-18 04:00] VITALS: BP 107/71; TEMP 97.7
[2021-11-18 04:43] LABS: PLATELET COUNT 268 K/uL (152-353)
[2021-11-18 05:02] LABS: POTASSIUM 4.3 mmol/L (3.6-5.2)
--- NOTE | 2021-11-18 05:45 | NUR ---
PAIN MEDICATION DILAUDID 1.5 MG IVSP/BENADYRL 25 MG IVSP/PHENERGAN 12.5 MG IVSP WAS GIVEN. PT WITH COMPLAINTS OF JOINT PAIN AND BACK PAIN. SICKLE CELL CRISIS.
[2021-11-18 08:00] VITALS: BP 107/57; TEMP 99.5
[2021-11-18 12:00] VITALS: BP 107/63; TEMP 98.5
[2021-11-18 16:00] VITALS: BP 112/69; TEMP 98.4
--- NOTE | 2021-11-18 16:28 | NUR ---
PATIENT RESTING IN BED ON PHONE. PATIENT HAS NO COMPLAINTS AT THIS TIME. CALL LIGHT WITHIN REACH, BED IN LOWEST POSITION. PATIENT EDUCATED TO CALL FOR ASISSTANCE IF NEEDED
--- NOTE | 2021-11-18 19:40 | NUR ---
PATIENT RESTING QUIETLY IN BED WATCHING TV. NO ACUTE DISTRESS NOTED AT THIS TIME. CALL LIGHT WITHIN REACH. WILL CONTINUE TO MONITOR.
[2021-11-18 20:00] VITALS: BP 113/70; TEMP 98.7
[2021-11-19] VITALS: BP 103/62; TEMP 98.3
[2021-11-19 04:00] VITALS: BP 108/59; BP 121/85; TEMP 98.1; TEMP 99
[2021-11-19 08:00] VITALS: BP 112/70; TEMP 98.3
--- NOTE | 2021-11-19 11:33 | NUR ---
DISCHARGE INSTRUCTIONS GIVEN AND EXPLAINED TO PT. PT VERBALZIED UNDERSTADNING. NO CO AT THIS TIME. PT TO CALL WHEN RIDE IS HERE
[2021-11-19 12:00] VITALS: BP 116/72; TEMP 99.4
--- NOTE | 2021-11-19 12:00 | NUR ---
PT'S LILIYA CATH FLUSHED WITH NS AND HEPARIN PER PROTOCOL. PORTACATH DC'D AND DIRECT PRESSURE APLLIED. NO ACITVE BLEEDING NOTED.
--- NOTE | 2021-11-19 12:14 | NUR ---
PT LEFT VIA WC AT THIS TIME. NO DISTRESS NOTED.
== END 2021-11-19 12:13 | disposition home or self-care (01) ==
LOC: ED 12:24 → MED/SURG 15:00
PROVIDERS: Emergency Medicine Emergency Medical Services; Internal Medicine; ADMIT Internal Medicine; ATTEND Internal Medicine
PROC: 30233N1 Transfusion of Nonautologous Red Blood Cells into Peripheral Vein, Percutaneous Approach (ICD-10-PCS; principal; 2021-11-16)
DX: D57.818 Other sickle-cell disorders with crisis with other specified complication (principal); N39.0 Urinary tract infection, site not specified; I95.89 Other hypotension; E03.8 Other specified hypothyroidism; D72.828 Other elevated white blood cell count; A41.89 Other specified sepsis; I50.9 Heart failure, unspecified
CPT/HCPCS: 36430; 36591; 80048; 80053; 80307; 81000; 81025; 84484; 85027; 85044; 86850; 86870; 86900; 86901; 86902; 86922; 87040; 87088; 87490; 87590; 87635; 93005; 96360; 96361; 96365; 96366; 96367; 96374; 96375; 96376; 99220; 99284; G0378; J1170; J1200; J1642; J1940; J2405; J2543; J2550; P9016; U0003

== ENCOUNTER 2021-12-09 17:43 | Emergency (ER) | payer OTHER ==
[~2021-12-09] VITALS: Ht 170.2 cm; Wt 49.9 kg
[2021-12-09 17:50] VITALS: BP 80/45; TEMP 100
== END 2021-12-09 19:20 | disposition home or self-care (01) ==
LOC: ED 17:43
DX: J10.1 Influenza due to other identified influenza virus with other respiratory manifestations (principal); Z20.822 Contact with and (suspected) exposure to COVID-19
CPT/HCPCS: 87502; 87635; 87651; 99282; U0003

== ENCOUNTER 2021-12-21 17:02 | Emergency (ER) | payer OTHER ==
[~2021-12-21] VITALS: Ht 170.2 cm; Wt 51.3 kg
[2021-12-21 18:28] LABS: PLATELET COUNT 355 K/uL (152-353)
[2021-12-21 21:50] VITALS: BP 119/67; TEMP 98.6
== END 2021-12-21 21:50 | disposition short-term general hospital (02) ==
LOC: ED 17:02
PROVIDERS: Emergency Medicine Emergency Medical Services
DX: I50.9 Heart failure, unspecified (principal); N39.0 Urinary tract infection, site not specified; Z79.899 Other long term (current) drug therapy
CPT/HCPCS: 80048; 80307; 81000; 81025; 83735; 83880; 84484; 85007; 85027; 87040; 87077; 87086; 87088; 87185; 87186; 87205; 93005; 96365; 96375; 99284; J1940; J2543

== ENCOUNTER 2021-12-29 21:14 | Emergency (ER) | payer OTHER ==
[~2021-12-29] VITALS: Ht 170.2 cm; Wt 51.3 kg
[2021-12-29 23:37] LABS: PLATELET COUNT 291 K/uL (152-353)
[2021-12-29 23:43] LABS: POTASSIUM 3.8 mmol/L (3.6-5.2)
[2021-12-30 00:20] VITALS: BP 102/63; TEMP 99
== END 2021-12-30 00:20 | disposition home or self-care (01) ==
LOC: ED 21:14
PROVIDERS: Family Medicine
DX: D57.80 Other sickle-cell disorders without crisis (principal); R53.83 Other fatigue; R79.1 Abnormal coagulation profile; Z79.899 Other long term (current) drug therapy
CPT/HCPCS: 36415; 36600; 80053; 80307; 81000; 82150; 82550; 82805; 83690; 83880; 84484; 85007; 85027; 85610; 85730; 87040; 87077; 87086; 87088; 87185; 87502; 93005; 99283

== ENCOUNTER 2022-02-19 17:29 | Emergency (ER) | payer OTHER ==
[~2022-02-19] VITALS: Ht 170.2 cm; Wt 51.3 kg
[2022-02-19 17:41] VITALS: BP 100/57; TEMP 99.1
== END 2022-02-19 18:29 | disposition home or self-care (01) ==
LOC: ED 17:29
DX: D57.1 Sickle-cell disease without crisis (principal); M89.8X8 Other specified disorders of bone, other site
CPT/HCPCS: 96372; 99283; J1170; J2405

== ENCOUNTER 2022-04-11 19:52 | Emergency (ER) | payer OTHER ==
[~2022-04-11] VITALS: Ht 170.2 cm; Wt 51.3 kg
[2022-04-11 20:20] VITALS: TEMP 99.1
[2022-04-11 23:00] VITALS: BP 102/72
== END 2022-04-11 23:00 | disposition home or self-care (01) ==
LOC: ED 19:52
DX: S20.212A Contusion of left front wall of thorax, initial encounter (principal); V28.29XA Unspecified rider of other motorcycle injured in noncollision transport accident in nontraffic accident, initial encounter; Y92.096 Garden or yard of other non-institutional residence as the place of occurrence of the external cause
CPT/HCPCS: 96372; 99283; J1170; J1200; J2405

== ENCOUNTER 2022-04-19 07:51 | Emergency (ER) | payer OTHER ==
[~2022-04-19] VITALS: Ht 170.2 cm; Wt 51.3 kg
[2022-04-19 07:57] VITALS: TEMP 97.9
[2022-04-19 08:36] LABS: PLATELET COUNT 309 K/uL (152-353)
[2022-04-19 08:39] LABS: POTASSIUM 3.9 mmol/L (3.6-5.2)
[2022-04-19 10:58] VITALS: BP 96/42
== END 2022-04-19 11:04 | disposition home or self-care (01) ==
LOC: ED 07:51
PROVIDERS: Internal Medicine
DX: D57.1 Sickle-cell disease without crisis (principal); M25.561 Pain in right knee
CPT/HCPCS: 36591; 80048; 85007; 85027; 85044; 96361; 96374; 96375; 99284; J1170; J1200; J2405

== ENCOUNTER 2022-05-02 00:55 | Emergency (ER) | payer OTHER ==
[~2022-05-02] VITALS: Ht 170.2 cm; Wt 54.0 kg
[2022-05-02 02:07] LABS: PLATELET COUNT 282 K/uL (152-353)
[2022-05-02 02:11] LABS: POTASSIUM 4.3 mmol/L (3.6-5.2)
[2022-05-02 06:10] VITALS: BP 104/57; TEMP 98.4
== END 2022-05-02 06:10 | disposition short-term general hospital (02) ==
LOC: ED 00:55
PROVIDERS: Emergency Medicine Emergency Medical Services
DX: J18.9 Pneumonia, unspecified organism (principal); D57.00 Hb-SS disease with crisis, unspecified; Z79.899 Other long term (current) drug therapy; F17.210 Nicotine dependence, cigarettes, uncomplicated
CPT/HCPCS: 36415; 80048; 80307; 81002; 81025; 83735; 85027; 85044; 85610; 87040; 96361; 96365; 96367; 96375; 99284; J1170; J1200; J2405

== ENCOUNTER 2022-06-02 13:38 | Inpatient (IN) | payer OTHER ==
[~2022-06-02] VITALS: Ht 170.2 cm; Wt 53.2 kg
[2022-06-02] VITALS (13 sets, daily range): BP systolic 87–103; BP diastolic 44–64; TEMP 98.6–101.2; Ht 170.2 cm; Wt 53.2 kg
[~2022-06-02 13:38] MED LIST changes: +CEFD300C2 PO
[2022-06-02 14:51] LABS: PLATELET COUNT 300 K/uL (152-353)
[2022-06-02 14:59] LABS: POTASSIUM 3.9 mmol/L (3.6-5.2)
[2022-06-03] VITALS (14 sets, daily range): BP systolic 92–104; BP diastolic 46–63; TEMP 98.9–100.4
[2022-06-04] VITALS (7 sets, daily range): BP systolic 94–163; BP diastolic 49–83; TEMP 97.3–99.1
[2022-06-04 05:12] LABS: PLATELET COUNT 251 K/uL (152-353)
[2022-06-04 05:22] LABS: POTASSIUM 4.1 mmol/L (3.6-5.2)
[2022-06-05] VITALS: BP 92/54; TEMP 99.1
[2022-06-05 03:42] VITALS: BP 101/57; TEMP 99.6
[2022-06-05 05:07] LABS: PLATELET COUNT 273 K/uL (152-353)
[2022-06-05 05:15] LABS: POTASSIUM 3.7 mmol/L (3.6-5.2)
[2022-06-05 08:00] VITALS: BP 97/52; TEMP 99.4
[2022-06-05 12:00] VITALS: BP 110/65; TEMP 99.1
[2022-06-05 16:00] VITALS: BP 102/56; TEMP 98.7
[2022-06-05 20:00] VITALS: BP 105/68; TEMP 97.9
[2022-06-06] VITALS: BP 110/56; TEMP 98
[2022-06-06 04:00] VITALS: BP 107/65; TEMP 98.7
[2022-06-06 05:30] LABS: PLATELET COUNT 301 K/uL (152-353)
[2022-06-06 05:47] LABS: POTASSIUM 3.6 mmol/L (3.6-5.2)
[2022-06-06 07:52] VITALS: BP 108/68; TEMP 98.6
[2022-06-06] MEDS ORDERED: AMOX500C85 PO (09:09)
[2022-06-06] MEDS ORDERED: PROMETHAZINE HY25 MG PO (09:10)
[2022-06-06 12:00] VITALS: BP 116/70; TEMP 98.5
== END 2022-06-06 13:42 | disposition home or self-care (01) | DRG 812 ==
LOC: ED 13:38 → MED/SURG 21:09
PROVIDERS: Internal Medicine; ADMIT Internal Medicine; ATTEND Internal Medicine
PROC: 30233N1 Transfusion of Nonautologous Red Blood Cells into Peripheral Vein, Percutaneous Approach (ICD-10-PCS; principal; 2022-06-03)
DX: D57.818 Other sickle-cell disorders with crisis with other specified complication (principal); R78.81 Bacteremia; J02.0 Streptococcal pharyngitis; D72.828 Other elevated white blood cell count
CPT/HCPCS: 36415; 36591; 80053; 81000; 81025; 83605; 85027; 85044; 86850; 86900; 86901; 86902; 86922; 87040; 87077; 87185; 87186; 87205; 87502; 87635; 87651; 93005; 96361; 96374; 96375; 96376; 99284; J0290; J1170; J1200; J1642; J2405; P9016; U0003

== ENCOUNTER 2022-06-14 20:24 | Emergency (ER) | payer OTHER ==
[~2022-06-14] VITALS: Ht 170.2 cm; Wt 51.3 kg
[~2022-06-14 20:24] MED LIST changes: +AMOX500C85 PO; +PROMETHAZINE HY25 MG PO
[2022-06-14 20:30] VITALS: TEMP 98.6
[2022-06-14 21:10] VITALS: BP 111/74
== END 2022-06-14 21:10 | disposition home or self-care (01) ==
LOC: ED 20:24
DX: K08.89 Other specified disorders of teeth and supporting structures (principal); G89.18 Other acute postprocedural pain; Z98.818 Other dental procedure status
CPT/HCPCS: 99282

== ENCOUNTER 2022-06-24 19:58 | Emergency (ER) | payer OTHER ==
[~2022-06-24] VITALS: Ht 170.2 cm; Wt 49.0 kg
[2022-06-24 20:03] VITALS: TEMP 99.2
[2022-06-24 21:11] LABS: PLATELET COUNT 323 K/uL (152-353)
[2022-06-24 21:16] LABS: POTASSIUM 4.6 mmol/L (3.6-5.2)
[2022-06-24 21:28] LABS: PARTIAL THROMBOPLASTIN TIME 73.5 SECONDS (24.5-33.6)
[2022-06-24 23:07] VITALS: BP 117/66
[2022-06-25] MEDS ORDERED: XTAMPZA ER18 MG PO (16:25)
== END 2022-06-24 23:07 | disposition home or self-care (01) ==
LOC: ED 19:58
PROVIDERS: Emergency Medicine
DX: D57.00 Hb-SS disease with crisis, unspecified (principal); R00.2 Palpitations; R00.0 Tachycardia, unspecified; I50.9 Heart failure, unspecified
CPT/HCPCS: 36591; 80053; 82550; 83880; 84484; 85007; 85027; 85610; 85730; 93005; 96361; 96372; 96374; 99284; J1170; J1200; J2405; J3490

== ENCOUNTER 2022-06-25 09:38 | Inpatient (IN) | payer OTHER ==
[~2022-06-25] VITALS: Ht 170.2 cm; Wt 50.3 kg
[2022-06-25 09:38] VITALS: BP 118/72; TEMP 98.6
[2022-06-25 10:31] LABS: PLATELET COUNT 315 K/uL (152-353)
[2022-06-25 10:37] LABS: POTASSIUM 4.7 mmol/L (3.6-5.2)
[2022-06-25 10:48] LABS: PARTIAL THROMBOPLASTIN TIME 23.2 SECONDS (24.5-33.6)
[2022-06-25 12:30] VITALS: BP 99/54
[2022-06-25 16:11] VITALS: BP 102/59; TEMP 99.6; Ht 170.2 cm; Wt 50.3 kg
[2022-06-25] MEDS ORDERED: XTAMPZA ER18 MG PO (16:25)
[2022-06-25 17:38] VITALS: BP 90/48; TEMP 98.4
[2022-06-25 20:00] VITALS: BP 116/67; TEMP 98.4
[2022-06-26] VITALS (13 sets, daily range): BP systolic 94–105; BP diastolic 49–69; TEMP 97.8–99.6
[2022-06-26 09:24] LABS: PLATELET COUNT 297 K/uL (152-353)
[2022-06-27 03:31] VITALS: BP 103/59; TEMP 99.5
[2022-06-27 07:09] LABS: PLATELET COUNT 348 K/uL (152-353)
[2022-06-27 07:28] LABS: POTASSIUM 5.7 mmol/L (3.6-5.2)
[2022-06-27 07:54] VITALS: BP 107/56; TEMP 99
[2022-06-27] MEDS ORDERED: LEVO0.0218 PO (11:54)
[2022-06-27 11:55] VITALS: BP 101/55; TEMP 99.5
== END 2022-06-27 13:06 | disposition home or self-care (01) | DRG 812 ==
LOC: ED 09:38 → MED/SURG 13:06
PROVIDERS: Emergency Medicine; ADMIT Internal Medicine; ATTEND Internal Medicine
DX: D57.818 Other sickle-cell disorders with crisis with other specified complication (principal); N39.0 Urinary tract infection, site not specified; R00.0 Tachycardia, unspecified; I50.84 End stage heart failure; E03.8 Other specified hypothyroidism; I95.89 Other hypotension; D72.828 Other elevated white blood cell count
CPT/HCPCS: 80053; 81000; 83880; 84439; 84443; 84484; 85027; 85044; 85610; 85730; 86850; 86900; 86901; 86922; 87086; 87088; 93005; 96361; 96367; 96368; 96374; 96375; 99284; J1170; J1200; J2405; J2550; J3490; P9016

== ENCOUNTER 2022-07-10 03:53 | Inpatient (IN) | payer OTHER ==
[~2022-07-10] VITALS: Ht 170.2 cm; Wt 57.7 kg
[2022-07-10] VITALS (9 sets, daily range): BP systolic 99–119; BP diastolic 54–68; TEMP 98–98.8; Ht 170.2 cm; Wt 57.7 kg
[~2022-07-10 03:53] MED LIST changes: +LEVO0.0218 PO
[2022-07-10 04:55] LABS: POTASSIUM 4.2 mmol/L (3.6-5.2)
[2022-07-10 05:16] LABS: PLATELET COUNT 330 K/uL (152-353)
[2022-07-10 06:14] LABS: PARTIAL THROMBOPLASTIN TIME 44.1 SECONDS (23.9-36.7)
[2022-07-10] MEDS ORDERED: LEVO-T25 MCG PO (11:44)
[2022-07-11 03:45] VITALS: BP 106/50; TEMP 99.1
[2022-07-11 07:14] LABS: PLATELET COUNT 328 K/uL (152-353)
[2022-07-11 07:32] LABS: POTASSIUM 4.5 mmol/L (3.6-5.2)
[2022-07-11 08:00] VITALS: BP 144/76; TEMP 99
[2022-07-11 12:00] VITALS: BP 108/62; TEMP 98.6
[2022-07-11] MEDS ORDERED: AMOX500T5 PO (15:43)
[2022-07-11 16:00] VITALS: BP 109/63; TEMP 98.4
[2022-07-11 19:30] VITALS: BP 116/69; TEMP 99
[2022-07-11 23:51] VITALS: BP 126/61; TEMP 98.9
[2022-07-12 03:50] VITALS: BP 119/64; TEMP 99.2
[2022-07-12 08:16] LABS: POTASSIUM 4.4 mmol/L (3.6-5.2)
[2022-07-12 08:26] VITALS: BP 118/70; TEMP 98.9
[2022-07-12 08:26] LABS: PLATELET COUNT 316 K/uL (152-353)
== END 2022-07-12 08:29 | disposition home or self-care (01) | DRG 291 ==
LOC: ED 03:53 → MED/SURG 06:34
PROVIDERS: Family Medicine; ADMIT Internal Medicine; ATTEND Internal Medicine
PROC: 30233N1 Transfusion of Nonautologous Red Blood Cells into Peripheral Vein, Percutaneous Approach (ICD-10-PCS; principal; 2022-07-10)
DX: I50.84 End stage heart failure (principal); D57.818 Other sickle-cell disorders with crisis with other specified complication; N39.0 Urinary tract infection, site not specified; I50.20 Unspecified systolic (congestive) heart failure; R60.0 Localized edema; E03.8 Other specified hypothyroidism
CPT/HCPCS: 36415; 80053; 80307; 81000; 82150; 82550; 83690; 83880; 84484; 85027; 85610; 85730; 86850; 86900; 86901; 86902; 86922; 87086; 87088; 93005; 96365; 96368; 96375; 96376; 99284; J1170; J1200; J1642; J2405; J2543; J2550; P9016

== ENCOUNTER 2022-08-02 14:22 | Emergency (ER) | payer OTHER ==
[~2022-08-02] VITALS: Ht 170.2 cm; Wt 53.5 kg
[2022-08-02 14:36] VITALS: BP 103/74; TEMP 97.2
[2022-08-02 15:41] LABS: PLATELET COUNT 387 K/uL (152-353)
[2022-08-02 15:49] LABS: POTASSIUM 4.5 mmol/L (3.6-5.2)
== END 2022-08-02 16:41 | disposition home or self-care (01) ==
LOC: ED 14:22
PROVIDERS: Emergency Medicine
DX: D57.00 Hb-SS disease with crisis, unspecified (principal)
CPT/HCPCS: 80053; 85008; 85027; 96372; 99283; J1200; J1885

== ENCOUNTER 2022-09-08 15:30 | Emergency (ER) | payer OTHER ==
[~2022-09-08] VITALS: Ht 170.2 cm; Wt 51.7 kg
[2022-09-08 15:55] VITALS: TEMP 98.3
[2022-09-08 18:20] LABS: PLATELET COUNT 271 K/uL (152-353)
[2022-09-08 18:23] LABS: POTASSIUM 4.5 mmol/L (3.6-5.2)
[2022-09-08 18:26] VITALS: BP 107/75
== END 2022-09-08 19:50 | disposition still patient (30) ==
LOC: ED 15:30
PROVIDERS: Family Medicine
DX: D57.1 Sickle-cell disease without crisis (principal); D63.8 Anemia in other chronic diseases classified elsewhere; E86.0 Dehydration
CPT/HCPCS: 36415; 36416; 80053; 85007; 85027; 96361; 96374; 96375; 99284; J1170; J1200; J2405

== ENCOUNTER 2022-09-10 22:02 | Inpatient (IN) | payer OTHER ==
[~2022-09-10] VITALS: Ht 170.2 cm; Wt 58.6 kg
[2022-09-10 22:11] VITALS: BP 99/61; TEMP 98.2
[2022-09-10 22:45] LABS: PLATELET COUNT 248 K/uL (152-353)
[2022-09-10 23:24] LABS: POTASSIUM 4.9 mmol/L (3.6-5.2)
[2022-09-10 23:30] VITALS: BP 111/77
[2022-09-11] VITALS (15 sets, daily range): BP systolic 92–110; BP diastolic 49–68; TEMP 98.3–98.9; Ht 170.2 cm; Wt 58.6 kg
[2022-09-11 05:52] LABS: PLATELET COUNT 231 K/uL (152-353)
[2022-09-11 06:12] LABS: POTASSIUM 4.7 mmol/L (3.6-5.2)
[2022-09-11] MEDS ORDERED: DEFERASIROX PO (10:08)
[2022-09-11] MEDS ORDERED: SPIRONOLACT25 MG PO (10:09)
[2022-09-11] MEDS ORDERED: FURO40TA93 PO (10:09)
[2022-09-11] MEDS ORDERED: LEVO0.0723 PO (10:10)
[2022-09-11] MEDS ORDERED: METO25TA4 PO (10:11)
[2022-09-11] MEDS ORDERED: ENTRESTO 24-261 TAB PO (10:11)
[2022-09-11] MEDS ORDERED: NARCAN (10:13)
[2022-09-12] VITALS (9 sets, daily range): BP systolic 91–107; BP diastolic 50–60; TEMP 98.6–99.3
[2022-09-12 05:20] LABS: PLATELET COUNT 223 K/uL (152-353)
[2022-09-13] VITALS (7 sets, daily range): BP systolic 94–106; BP diastolic 53–68; TEMP 98.3–99.3
[2022-09-14 04:00] VITALS: BP 103/56; TEMP 98.8
[2022-09-14 07:41] LABS: PLATELET COUNT 229 K/uL (152-353)
[2022-09-14 08:00] VITALS: BP 100/65; TEMP 98.6
[2022-09-14 08:05] LABS: POTASSIUM 4.1 mmol/L (3.6-5.2)
[2022-09-14 12:00] VITALS: BP 122/81; TEMP 99
[2022-09-14 16:00] VITALS: BP 95/56; TEMP 99.1
[2022-09-14 20:00] VITALS: BP 104/63; TEMP 99.4
[2022-09-14 23:56] VITALS: BP 97/50; TEMP 98.7
[2022-09-15 03:34] VITALS: BP 102/55; TEMP 99
[2022-09-15 08:00] VITALS: BP 101/47; TEMP 98.7
[2022-09-15 12:00] VITALS: BP 101/59; TEMP 98.8
[2022-09-15 16:00] VITALS: BP 109/63; TEMP 99.5
[2022-09-15 20:00] VITALS: BP 103/67; TEMP 99.2
[2022-09-16] VITALS: BP 103/79; TEMP 99.2
[2022-09-16 04:00] VITALS: BP 100/63; TEMP 99.3
[2022-09-16 07:37] LABS: PLATELET COUNT 246 K/uL (152-353)
[2022-09-16 07:44] LABS: POTASSIUM 3.7 mmol/L (3.6-5.2)
[2022-09-16 07:51] VITALS: BP 102/53; TEMP 98.4
[2022-09-16 11:58] VITALS: BP 99/58; TEMP 98.8
[2022-09-16 16:00] VITALS: BP 101/74; TEMP 98.9
[2022-09-16 20:00] VITALS: BP 105/64; TEMP 98.9
[2022-09-17] VITALS: BP 105/66; TEMP 98.9
[2022-09-17 04:00] VITALS: BP 106/69; TEMP 98.9
[2022-09-17 08:02] VITALS: BP 106/59; TEMP 99.3
[2022-09-17 12:09] VITALS: BP 98/50; TEMP 99
[2022-09-17 16:04] VITALS: BP 108/57; TEMP 99.1
[2022-09-17 20:00] VITALS: BP 114/72; TEMP 99.4
[2022-09-18] VITALS (7 sets, daily range): BP systolic 108–131; BP diastolic 63–90; TEMP 98.7–99.4
[2022-09-18 05:03] LABS: PLATELET COUNT 216 K/uL (152-353)
[2022-09-19 03:31] VITALS: BP 118/72; TEMP 98.9
[2022-09-19 08:00] VITALS: BP 110/69; TEMP 99
== END 2022-09-19 14:54 | disposition home or self-care (01) | DRG 812 ==
LOC: ED 22:02 → MED/SURG 09-11 02:58
PROVIDERS: Family Medicine; Internal Medicine Endocrinology, Diabetes & Metabolism; ADMIT Internal Medicine; ATTEND Internal Medicine
PROC: 30233N1 Transfusion of Nonautologous Red Blood Cells into Peripheral Vein, Percutaneous Approach (ICD-10-PCS; principal; 2022-09-11)
PROC: 30233N1 Transfusion of Nonautologous Red Blood Cells into Peripheral Vein, Percutaneous Approach (ICD-10-PCS; 2022-09-12)
DX: D57.819 Other sickle-cell disorders with crisis, unspecified (principal); N39.0 Urinary tract infection, site not specified; I50.22 Chronic systolic (congestive) heart failure; D64.89 Other specified anemias; D72.828 Other elevated white blood cell count; G89.4 Chronic pain syndrome; Z79.01 Long term (current) use of anticoagulants
CPT/HCPCS: 36415; 36430; 80048; 80053; 81000; 83735; 84100; 85027; 86850; 86870; 86900; 86901; 86902; 86922; 87086; 87088; 96361; 96365; 96367; 96374; 96375; 96376; 99284; J1170; J1200; J1885; J1940; J2405; J2543; J3475; P9016